=== PATIENT | male | born 1950 | race Caucasian/White ===

== ENCOUNTER 2017-02-23 09:44 | Emergency (ER) | payer BC ==
[~2017-02-23] VITALS: Ht 180.3 cm; Wt 120.5 kg
[~2017-02-23 09:44] MED LIST: GOOD SENSE OMEP20 MG PO; LIPITOR20 MG PO; NASONEX0.05 MG/AC NS; RESTORIL15 MG PO; SYMBICORT1 AE2 IH; WARFARIN SOD5 MG PO
[2017-02-23 09:48] VITALS: TEMP 97.6
[2017-02-23 10:25] LABS: BASO % 0.5 % (0.0-2.0); EOS # 0.7 (0.0-0.7); EOS % 8.4 % (0-4.0); GRAN # 5.2 (1.4-6.5); GRAN % 62.7 % (42.2-75.2); HEMATOCRIT 41.6 % (42.0-52.0); HEMOGLOBIN 13.3 g/dl (13.5-18.0); LYMPH # 1.6 (1.2-3.4); MEAN CELL VOLUME 76 fl (80.0-100.0); MEAN CORPUSCULAR HEMOGLOBIN 24 pg (27.0-31.0); MEAN CORPUSCULAR HGB CONC 32 g/dl (33.0-37.0); MEAN PLATELET VOLUME 10.7 fl (7.4-10.4); MONO # 0.8 (0.1-0.6); MONO % 9.3 % (1.7-9.3); PLATELET COUNT 206 K/mm3 (130-400); RED BLOOD COUNT 5.49 M/mm3 (4.20-5.60); REDCELL DISTRIBUTION WIDTH-CV 15.3 % (11.5-14.5); WHITE BLOOD COUNT 8.3 K/mm3 (4.8-10.8)
[2017-02-23 10:34] LABS: INR 3.2 (0.8-3.0); PROTHROMBIN TIME 36.5 SECONDS (9.7-12.8)
[2017-02-23 10:35] LABS: ADJUSTED CALCIUM 9.1 mg/dL (8.4-10.2); ALBUMIN 4.4 gm/dL (3.5-5.0); BILIRUBIN,TOTAL 1.1 mg/dL (0.0-1.0); CALCIUM 9.4 mg/dL (8.4-10.2); CREATININE, serum 1.03 mg/dL (0.66-1.25); POTASSIUM 4.1 mmol/L (3.4-5.0); TOTAL PROTEIN 7.5 gm/dL (6.4-8.2)
[2017-02-23] MEDS ORDERED: TIKOSYN0.25 MG PO (10:40)
[2017-02-23] MEDS ORDERED: REVIA 50MG TABL50 MG PO (10:41)
[2017-02-23] MEDS ORDERED: GLUCOPHAGE500 MG/TAB PO (10:41)
[2017-02-23] MEDS ORDERED: REQUIP2 MG PO (10:41)
[2017-02-23] MEDS ORDERED: LIPITOR 40MG TA40 MG PO (10:42)
[2017-02-23] MEDS ORDERED: PRILOTC (10:42)
[2017-02-23] MEDS ORDERED: COREG12.5 MG PO (10:43)
[2017-02-23] MEDS ORDERED: VASOTEC 10M10 MG/TAB PO (10:43)
[2017-02-23] MEDS ORDERED: PULMICORT180 MCG/Ac IH (10:44)
[2017-02-23] MEDS ORDERED: LASIX 20MG TABL20 MG PO (10:44)
[2017-02-23] MEDS ORDERED: ZANTAC 300300 MG PO (10:44)
[2017-02-23] MEDS ORDERED: ALDACTONE 25MG25 M1 PO (10:44)
[2017-02-23] MEDS ORDERED: TRAVATAN Z 2.52.5 ML OS (10:45)
[2017-02-23] MEDS ORDERED: THE MEDICINE S200 M2 PO (10:45)
[2017-02-23] MEDS ORDERED: FISH OIL 500 M1 EAC1 PO (10:45)
[2017-02-23] MEDS ORDERED: TRULICITY1.5 MG/0.5 SQ (10:46)
[2017-02-23] MEDS ORDERED: VITAMIN D1000 IU PO (10:46)
[2017-02-23] MEDS ORDERED: COUMADIN 77.5 MG/TAB PO (11:00)
[2017-02-23 11:27] LABS: PH 5 (5-8); SQUAMOUS EPITHELIAL None Seen /hpf; URINE APPEARANCE Clear; URINE BACTERIA None Seen /hpf; URINE BILIRUBIN Negative (NEGATIVE); URINE BLOOD Negative (NEGATIVE); URINE COLOR Yellow; URINE GLUCOSE Negative (NEGATIVE); URINE KETONE Negative (NEGATIVE); URINE RBC 0-2 /hpf; URINE UROBILINOGEN Negative (NEGATIVE); URINE WBC 0-2 /hpf
[2017-02-23 13:57] VITALS: BP 152/60; PULSE 82
== END 2017-02-23 13:59 | disposition home or self-care (01) ==
LOC: COL.ER 09:44
PROVIDERS: Emergency Medicine
DX: N41.9 Inflammatory disease of prostate, unspecified (principal); E11.9 Type 2 diabetes mellitus without complications; I10 Essential (primary) hypertension; G35 Multiple sclerosis; Z95.2 Presence of prosthetic heart valve; Z79.01 Long term (current) use of anticoagulants
CPT/HCPCS: J1956; J2765; J3010; J7030; Q9967

== ENCOUNTER 2018-03-05 06:47 | Day surgery (SDC) | payer MEDICARE, OTHER ==
[~2018-03-05] VITALS: Ht 180.3 cm; Wt 116.1 kg
[~2018-03-05 06:47] MED LIST changes: +ALDACTONE 25MG25 M1 PO; +COREG12.5 MG PO; +COUMADIN 77.5 MG/TAB PO; +D-2000 90 MG-201 TAB PO; +FISH OIL 500 M1 EAC1 PO; +GLUCOPHAGE500 MG/TAB PO; +LASIX 20MG TABL20 MG PO; +LIPITOR 40MG TA40 MG PO; +PRILOTC; +PULMICORT180 MCG/Ac IH; +REQUIP2 MG PO; +REVIA 50MG TABL50 MG PO; +THE MEDICINE S200 M2 PO; +TIKOSYN0.25 MG PO; +TRAVATAN Z 2.52.5 ML OU; +TRULICITY1.5 MG/0.5 SQ; +VASOTEC 10M10 MG/TAB PO; +ZANTAC 300300 MG PO
[2018-03-05 07:00] VITALS: BP 140/81; PULSE 75; TEMP 98.5
[2018-03-05 07:43] LABS: HEMOGLOBIN 11.3 g/dl (13.5-18.0); MEAN CELL VOLUME 72 fl (80.0-100.0); MEAN CORPUSCULAR HEMOGLOBIN 23 pg (27.0-31.0); MEAN CORPUSCULAR HGB CONC 32 g/dl (33.0-37.0); MEAN PLATELET VOLUME 10.1 fl (7.4-10.4); PLATELET COUNT 225 K/mm3 (130-400); RED BLOOD COUNT 4.94 M/mm3 (4.20-5.60); REDCELL DISTRIBUTION WIDTH-CV 17.6 % (11.5-14.5)
[2018-03-05 07:48] LABS: HEMATOCRIT 35.4 % (42.0-52.0)
[2018-03-05 07:52] LABS: INR 2.5 (0.8-3.0); PROTHROMBIN TIME 28.8 SECONDS (9.7-12.8)
[2018-03-05 07:55] LABS: CALCIUM 9.3 mg/dL (8.4-10.2); CREATININE, serum 0.89 mg/dL (0.66-1.25); POTASSIUM 3.3 mmol/L (3.4-5.0)
[2018-03-05 08:00] VITALS: BP 140/81; PULSE 75; TEMP 98.5
[2018-03-05] MEDS ORDERED: COUMADIN 1010 MG/TAB PO (08:45)
[2018-03-05] MEDS ORDERED: ASPIRIN E.C. 8181 MG PO (09:34)
[2018-03-07] MEDS ORDERED: SINGULAIR 110 MG/TAB PO (08:14)
[2018-03-07] MEDS ORDERED: LAMISIL250 M1 (08:15)
[2018-03-07] MEDS ORDERED: LYRICA 100MG C100 M1 PO (08:16)
[2018-03-07] MEDS ORDERED: COZAAR 25MG25 MG/TAB PO (08:18)
[2018-03-07] MEDS ORDERED: VISION VITAMINS1 TA1 PO (08:19)
[2018-03-07] MEDS ORDERED: FEVERFEW PO (08:22)
== END 2018-03-05 15:00 | disposition home or self-care (01) ==
LOC: COL.CAR 06:47
PROVIDERS: Internal Medicine Cardiovascular Disease
DX: I48.0 Paroxysmal atrial fibrillation (principal); I35.9 Nonrheumatic aortic valve disorder, unspecified; I38 Endocarditis, valve unspecified; I42.9 Cardiomyopathy, unspecified; I42.0 Dilated cardiomyopathy; I10 Essential (primary) hypertension; E78.5 Hyperlipidemia, unspecified; G47.33 Obstructive sleep apnea (adult) (pediatric); K21.9 Gastro-esophageal reflux disease without esophagitis; G35 Multiple sclerosis; J45.909 Unspecified asthma, uncomplicated; Z88.1 Allergy status to other antibiotic agents; Z88.0 Allergy status to penicillin; Z79.01 Long term (current) use of anticoagulants; Z82.49 Family history of ischemic heart disease and other diseases of the circulatory system

== ENCOUNTER 2018-05-02 22:18 | Inpatient (IN) | payer MEDICARE, OTHER ==
[~2018-05-02 22:18] MED LIST changes: +ASPIRIN E.C. 8181 MG PO; +COUMADIN 1010 MG/TAB PO; +COZAAR 25MG25 MG/TAB PO; +FEVERFEW PO; +LAMISIL250 M1; +LYRICA 100MG C100 M1 PO; +SINGULAIR 110 MG/TAB PO; +VISION VITAMINS1 TA1 PO
[2018-05-02 22:57] VITALS: BP 130/80; PULSE 112; TEMP 100.2
[2018-05-03 00:18] LABS: HEMATOCRIT 40.6 % (42.0-52.0); HEMOGLOBIN 13.2 g/dl (13.5-18.0); MEAN CELL VOLUME 72 fl (80.0-100.0); MEAN CORPUSCULAR HEMOGLOBIN 23 pg (27.0-31.0); MEAN CORPUSCULAR HGB CONC 33 g/dl (33.0-37.0); MEAN PLATELET VOLUME 10.6 fl (7.4-10.4); PLATELET COUNT 233 K/mm3 (130-400); RED BLOOD COUNT 5.64 M/mm3 (4.20-5.60); REDCELL DISTRIBUTION WIDTH-CV 17.5 % (11.5-14.5)
[2018-05-03 00:28] LABS: BILIRUBIN,TOTAL 1.9 mg/dL (0.0-1.0); CALCIUM 8.9 mg/dL (8.4-10.2); CREATININE, serum 1.25 mg/dL (0.66-1.25); INR 2.5 (0.8-3.0); POTASSIUM 4.3 mmol/L (3.4-5.0); PROTHROMBIN TIME 28.9 SECONDS (9.7-12.8)
[2018-05-03] MEDS ORDERED: GLUCOPHAGE500 MG/TAB PO (00:32)
[2018-05-03] MEDS ORDERED: NASONEX SPRAY17 GM NS (00:34)
[2018-05-03] MEDS ORDERED: THE MEDICINE S200 M2 PO (00:37)
[2018-05-03 00:49] LABS: ERYTHROCYTE SEDIMENTATION RATE 31 mm/hr (0-30)
[2018-05-03 00:56] LABS: TSH w REFLEX 0.984 uIU/mL (0.465-4.680)
[2018-05-03 01:06] LABS: C-REACTIVE PROTEIN 29.6 mg/dL (0.0-0.9)
[2018-05-03 01:23] LABS: ANISOCYTOSIS 1+; BAND 16 % (0-10); LYMPHOCYTE 9 % (20.0-51.0); NEUTROPHILS 70 % (42.0-75.2); PLATELET ESTIMATE NORMAL (NORMAL)
[2018-05-03 01:39] LABS: COLLECTION METHOD CLEAN CATCH
[2018-05-03 01:55] LABS: MUCOUS Present /lpf; PH 5 (5-8); SQUAMOUS EPITHELIAL 0-2 /hpf; URINE APPEARANCE Cloudy; URINE BACTERIA Moderate /hpf; URINE BILIRUBIN Negative (NEGATIVE); URINE BLOOD 2+ (NEGATIVE); URINE COLOR Amber; URINE GLUCOSE 1+ (NEGATIVE); URINE KETONE Trace (NEGATIVE); URINE LEUKOCYTE ESTERASE 2+ (NEGATIVE); URINE NITRATE Positive (NEGATIVE); URINE PROTEIN(semi-quant) 2+ (NEGATIVE); URINE RBC 0-2 /hpf; URINE UROBILINOGEN Negative (NEGATIVE); URINE WBC >50 /hpf
[2018-05-03 16:41] VITALS: BP 91/60; PULSE 84; TEMP 98.7
[2018-05-03 18:58] VITALS: BP 96/53; PULSE 85; TEMP 98
[2018-05-03 19:39] VITALS: BP 143/67; PULSE 84; TEMP 97.4
[2018-05-03 23:19] VITALS: BP 107/64; PULSE 71; TEMP 98.2
[2018-05-04 04:01] VITALS: BP 118/61; PULSE 74; TEMP 97.4
[2018-05-04 07:13] LABS: CALCIUM 8.7 mg/dL (8.4-10.2); CREATININE, serum 1.39 mg/dL (0.66-1.25); POTASSIUM 3.8 mmol/L (3.4-5.0)
[2018-05-04 07:26] LABS: THYROXINE (T4)-TOTAL 8.6 ug/dL (5.5-11.0)
[2018-05-04 07:40] LABS: THYROID STIMULATING HORMONE 0.767 uIU/mL (0.465-4.680)
[2018-05-04 07:52] VITALS: BP 109/62; PULSE 78; TEMP 98.4
[2018-05-04 11:30] VITALS: BP 101/64; PULSE 75; TEMP 98.2
[2018-05-04 16:26] VITALS: BP 101/61; PULSE 81; TEMP 98.2
[2018-05-04 20:00] VITALS: BP 111/66; PULSE 84; TEMP 99.2
[2018-05-05 04:00] VITALS: BP 123/69; PULSE 78; TEMP 99.1
[2018-05-05 07:08] VITALS: BP 123/73; PULSE 78; TEMP 98.8
[2018-05-05 11:01] VITALS: BP 121/89; PULSE 77; TEMP 98.4
[2018-05-05 15:35] VITALS: BP 124/65; PULSE 74; TEMP 98.7
[2018-05-05 19:21] LABS: INR 2.8 (0.8-3.0); PROTHROMBIN TIME 31.4 SECONDS (9.7-12.8)
[2018-05-05 20:03] VITALS: BP 117/70; PULSE 78; TEMP 98.3
[2018-05-05 23:46] VITALS: BP 131/85; PULSE 76; TEMP 97.6
[2018-05-06 03:06] VITALS: BP 127/76; PULSE 81; TEMP 99
[2018-05-06] MEDS ORDERED: CIPRO 500MG TA500 MG PO (06:56)
[2018-05-06] MEDS ORDERED: COUMADIN 77.5 MG/TAB PO (06:58)
[2018-05-06] MEDS ORDERED: COUMADIN 1010 MG/TAB PO (06:59)
[2018-05-06 08:16] VITALS: BP 143/73; PULSE 86; TEMP 98.8
[2018-05-06 09:40] VITALS: BP 143/73; PULSE 86; TEMP 98.8
[2018-05-08 12:48] LABS: VITAMIN D, 1,25 DIHYDROXY 89 pg/mL (18-64)
== END 2018-05-06 11:00 | DRG 41 ==
LOC: MEDICAL 22:18
PROVIDERS: Emergency Medicine; Psychiatry & Neurology Neurology
PROC: 0JH602Z Insertion of Monitoring Device into Chest Subcutaneous Tissue and Fascia, Open Approach (ICD-10-PCS; principal; 2018-05-05)
DX: I63.9 Cerebral infarction, unspecified (principal); N39.0 Urinary tract infection, site not specified; E87.1 Hypo-osmolality and hyponatremia; I42.0 Dilated cardiomyopathy; I50.22 Chronic systolic (congestive) heart failure; G81.94 Hemiplegia, unspecified affecting left nondominant side; G35 Multiple sclerosis; I48.0 Paroxysmal atrial fibrillation; J45.909 Unspecified asthma, uncomplicated; E11.42 Type 2 diabetes mellitus with diabetic polyneuropathy; Z91.81 History of falling; Z95.2 Presence of prosthetic heart valve; E78.2 Mixed hyperlipidemia; B96.1 Klebsiella pneumoniae [K. pneumoniae] as the cause of diseases classified elsewhere
CPT/HCPCS: A9585; C1764; J0744; J1815

== ENCOUNTER 2018-05-06 11:05 | Inpatient (IN) | payer MEDICARE, OTHER ==
[~2018-05-06] VITALS: Ht 180.3 cm; Wt 114.7 kg
[~2018-05-06 11:05] MED LIST changes: +CIPRO 500MG TA500 MG PO; +NASONEX SPRAY17 GM NS
[2018-05-06 12:02] VITALS: BP 114/65; PULSE 90; TEMP 98.1
[2018-05-06 18:35] VITALS: BP 94/59; PULSE 70; TEMP 97.5
[2018-05-06 20:30] VITALS: BP 114/62; PULSE 78
[2018-05-07 05:20] VITALS: BP 111/69; PULSE 102; TEMP 98.6
[2018-05-07 05:49] VITALS: BP 99/84; PULSE 77; TEMP 97.6
[2018-05-07 09:15] VITALS: BP 110/70
[2018-05-07 13:33] LABS: INR 2.7 (0.8-3.0); PROTHROMBIN TIME 30.4 SECONDS (9.7-12.8)
[2018-05-07 18:02] VITALS: BP 100/65; PULSE 78; TEMP 96.2
[2018-05-08 04:25] VITALS: BP 132/67; PULSE 67; TEMP 98.6
[2018-05-08 15:43] VITALS: BP 100/50; PULSE 79; TEMP 96.6
[2018-05-09 05:34] VITALS: BP 101/72; PULSE 72; TEMP 97.3
[2018-05-09 07:30] VITALS: BP 114/58
[2018-05-09 15:22] VITALS: BP 95/61; PULSE 80; TEMP 97.3
[2018-05-10 04:47] VITALS: BP 106/68; PULSE 68; TEMP 97.5
[2018-05-10 07:31] LABS: CREATININE, serum 1.09 mg/dL (0.66-1.25); POTASSIUM 4.3 mmol/L (3.4-5.0)
[2018-05-10 08:25] LABS: INR 2.5 (0.8-3.0); PROTHROMBIN TIME 28.7 SECONDS (9.7-12.8)
[2018-05-10 16:21] VITALS: BP 89/57; PULSE 79; TEMP 97.6
[2018-05-11 04:38] VITALS: BP 101/63; PULSE 69; TEMP 97.8
[2018-05-11 16:50] VITALS: BP 90/58; PULSE 84; TEMP 98.6
[2018-05-12 06:01] VITALS: BP 104/65; PULSE 77; TEMP 97.5
[2018-05-12 07:00] LABS: INR 2.3 (0.8-3.0); PROTHROMBIN TIME 26.2 SECONDS (9.7-12.8)
[2018-05-12 08:08] VITALS: BP 118/70
[2018-05-12 15:22] VITALS: BP 95/64; PULSE 84; TEMP 97.4
[2018-05-13 06:22] VITALS: BP 115/65; PULSE 83; TEMP 98
[2018-05-13 16:22] VITALS: BP 105/70; PULSE 78; TEMP 97.4
[2018-05-13] MEDS ORDERED: JANUVIA 100MG100 MG PO (17:39)
[2018-05-13 21:02] LABS: COLLECTION METHOD CLEAN CATCH
[2018-05-13 21:11] LABS: MUCOUS Present /lpf; PH 5 (5-8); SQUAMOUS EPITHELIAL 0-2 /hpf; URINE APPEARANCE Clear; URINE BACTERIA None Seen /hpf; URINE BILIRUBIN Negative (NEGATIVE); URINE BLOOD Negative (NEGATIVE); URINE COLOR Yellow; URINE GLUCOSE Negative (NEGATIVE); URINE KETONE Negative (NEGATIVE); URINE LEUKOCYTE ESTERASE Negative (NEGATIVE); URINE NITRATE Negative (NEGATIVE); URINE PROTEIN(semi-quant) Negative (NEGATIVE); URINE RBC 0-2 /hpf; URINE UROBILINOGEN Negative (NEGATIVE)
[2018-05-14 05:14] VITALS: BP 126/72; PULSE 71; TEMP 97.6
[2018-05-14 06:51] LABS: PROTHROMBIN TIME 23.2 SECONDS (9.7-12.8)
== END 2018-05-14 13:30 | disposition home or self-care (01) | DRG 59 ==
PROVIDERS: Emergency Medicine; Internal Medicine
DX: G35 Multiple sclerosis (principal); I69.354 Hemiplegia and hemiparesis following cerebral infarction affecting left non-dominant side; N39.0 Urinary tract infection, site not specified; I50.22 Chronic systolic (congestive) heart failure; B96.1 Klebsiella pneumoniae [K. pneumoniae] as the cause of diseases classified elsewhere; I11.0 Hypertensive heart disease with heart failure; E11.42 Type 2 diabetes mellitus with diabetic polyneuropathy; I48.0 Paroxysmal atrial fibrillation; E11.65 Type 2 diabetes mellitus with hyperglycemia; M51.36 Other intervertebral disc degeneration, lumbar region; M21.372 Foot drop, left foot
CPT/HCPCS: 99222-AI; 99232-AI; 99239; J1815

== ENCOUNTER 2018-08-06 09:03 | Outpatient (RCR) | payer MEDICARE, OTHER ==
[~2018-08-06 09:03] MED LIST changes: +JANUVIA 100MG100 MG PO
== END 2018-11-04 | disposition home or self-care (01) ==
LOC: WSST
DX: G35 Multiple sclerosis (principal); R05 Cough
CPT/HCPCS: G8996-GN; G8997-GN

== ENCOUNTER → 2018-09-19 | Outpatient (CLI) | payer MEDICARE, OTHER | LOC: COL.RAD 08:17 | DX: I35.9 Nonrheumatic aortic valve disorder, unspecified (principal); Z95.2 Presence of prosthetic heart valve; Z90.49 Acquired absence of other specified parts of digestive tract | CPT/HCPCS: Q9967 ==

== ENCOUNTER 2019-03-04 09:33 | Day surgery (SDC) | payer MEDICARE, OTHER ==
--- NOTE | 2019-03-03 12:12 | NUR ---
LEFT MESSAGE WITH PT IN REGARDS TO PROCEDURE INSTRUCTIONS. ENCOURAGED CALL BACK TO REVIEW MEDICAL HISTORY PRIOR TO PROCEDURE TOMORROW.
[2019-03-04] VITALS (11 sets, daily range): BP systolic 120–155; BP diastolic 63–87; PULSE 73–81; TEMP 97.8–98.1
[~2019-03-04] VITALS: Ht 175.3 cm; Wt 124.1 kg
[2019-03-04 10:23] LABS: HEMOGLOBIN 10.8 g/dl (13.5-18.0); MEAN CELL VOLUME 75 fl (80.0-100.0); MEAN CORPUSCULAR HEMOGLOBIN 23 pg (27.0-31.0); MEAN CORPUSCULAR HGB CONC 31 g/dl (33.0-37.0); MEAN PLATELET VOLUME 10.3 fl (7.4-10.4); PLATELET COUNT 215 K/mm3 (130-400); RED BLOOD COUNT 4.63 M/mm3 (4.20-5.60)
[2019-03-04 10:28] LABS: HEMATOCRIT 34.7 % (42.0-52.0)
[2019-03-04 10:31] LABS: INR 1.3 (0.8-3.0); PROTHROMBIN TIME 14.7 SECONDS (9.7-12.8)
[2019-03-04 10:33] LABS: CALCIUM 9.5 mg/dL (8.4-10.2); CREATININE, serum 0.99 (0.66-1.25); POTASSIUM 3.4 mmol/L (3.4-5.0)
[2019-03-04] MEDS ORDERED: NORVASC 5MG5 MG/TAB PO (10:49)
[2019-03-04] MEDS ORDERED: VITAMIN D 1001000 IU (10:49)
[2019-03-04] MEDS ORDERED: ZANTAC 300300 MG PO (10:52)
[2019-03-04] MEDS ORDERED: TIKOSYN0.125 MG PO (10:53)
[2019-03-04] MEDS ORDERED: LOVENOX 100100 MG/ML SQ (10:55)
--- NOTE | 2019-03-04 11:56 | NUR ---
SEE MERGE DOCUMENTATION FOR MEDICATION ADMINISTRATION TIMES AND INTRA/POST PROCEDURE SEDATION ASSESSMENTS.
--- NOTE | 2019-03-04 14:00 | NUR ---
PT ADMITTED TO FLOOR. NO C/O PAIN AT THIS TIME. POST OP VITALS BEING OBTAINED. NO ISSUES OR CONSERNS VOICED. PT ORDERING LUNCH. DRESSING SITES TO LT CHEST CLEAN DRY INTACT, SLING IN PLACE. OFFERED PT ICE PACK, DENIED NEED. ORDERS FOR IRON STUDIES AND HEMOCULT IN LAB ORDERS, PT UNKNOWING ABOUT THIS WHEN ASKED, WILL ATTEMPT TO SEE [facility] FOR TESTING.
[2019-03-04 18:33] LABS: IRON,SERUM 73 ug/dL (35-150)
[2019-03-04 18:44] LABS: TOTAL IRON BINDING CAPACITY 298 ug/dL (261-462)
[2019-03-04 19:08] LABS: FERRITIN 48 ng/mL (18-464)
--- NOTE | 2019-03-04 20:21 | NUR ---
Sitting at bedside. Assessment complete. Lungs clear. Heart sounds normal. Bowels active x4. ABD rounded and firm. Pulses strong throughout. No edema noted. Left chest incision dressing CDI. Midchest incision dressing CDI. Denies pain at this time. Left hand INT flushed without complication. Denies needs. Call light in reach. Left arm sling in place.
--- NOTE | 2019-03-04 23:39 | NUR ---
Resting in bed. Dressings CDI. Denies needs. Denies pain. Call light in reach.
[2019-03-05 04:07] VITALS: BP 143/81; PULSE 77; TEMP 98.5
--- NOTE | 2019-03-05 04:30 | NUR ---
Resting in bed. Call light in reach.
[2019-03-05 06:31] LABS: BASO % 0.4 % (0.0-2.0); EOS # 0.3 (0.0-0.7); EOS % 3.3 % (0-4.0); GRAN # 6.3 (1.4-6.5); GRAN % 74.7 % (42.2-75.2); HEMOGLOBIN 10.4 g/dl (13.5-18.0); LYMPH # 1.1 (1.2-3.4); LYMPH % 12.8 % (20.0-51.0); MEAN CELL VOLUME 75 fl (80.0-100.0); MEAN CORPUSCULAR HEMOGLOBIN 23 pg (27.0-31.0); MEAN CORPUSCULAR HGB CONC 31 g/dl (33.0-37.0); MEAN PLATELET VOLUME 10.9 fl (7.4-10.4); MONO # 0.7 (0.1-0.6); MONO % 7.7 % (1.7-9.3); PLATELET COUNT 212 K/mm3 (130-400); REDCELL DISTRIBUTION WIDTH-CV 16.1 % (11.5-14.5)
[2019-03-05 06:36] LABS: CALCIUM 9.2 mg/dL (8.4-10.2); CREATININE, serum 0.88 (0.66-1.25); MAGNESIUM 1.5 mg/dL (1.6-2.3); POTASSIUM 3.2 mmol/L (3.4-5.0)
--- NOTE | 2019-03-05 06:44 | NUR ---
Patient had uneventful night. Dressings remain CDI. Report given to ERNST Pineda
[2019-03-05 06:51] LABS: INR 1.2 (0.8-3.0); PROTHROMBIN TIME 14.6 SECONDS (9.7-12.8)
[2019-03-05 06:57] LABS: HEMATOCRIT 33.9 % (42.0-52.0)
[2019-03-05 08:47] VITALS: BP 157/78; PULSE 86; TEMP 98.2
--- NOTE | 2019-03-05 09:21 | NUR ---
MARTÍN met with the patient to discuss discharge plan. The patient lives alone in [place]. He has a international student advisor that lives in his basement, who plans to come pick him up upon discharge. He reports independence with ADLs and has a walker. The patient's PCP is Dr. Tone Marques and he receives his medications at the [facility]. He reports no difficulties obtaining his meds. The patient does not have advanced directives in EMR, but he states that he does have them completed. The patient plans to return home upon discharge. No additional needs at this time.
[2019-03-05] MEDS ORDERED: CLEOCIN HCL300 MG PO (10:39)
[2019-03-05] MEDS ORDERED: LOVENOX120 MG/0.8 SQ (10:39)
--- NOTE | 2019-03-05 10:47 | NUR ---
Initial visit; Patient thanked Helpdesk Analyst for looking in on him and offering God's blessings.
--- NOTE | 2019-03-05 12:00 | NUR ---
PT INFORMED THIS NURSE HE TALKED WITH THE PACE MAKER PEOPLE WHO PAIR THE PACER WITH A MOBILE DEVICE THAT THEY ARE GOING TO PAIR IT WITH HIS MOBILE DEVICE AT HOME. PT VOICED NO QUESTIONS OR CONSERNS AT THIS TIME. PT WAS INFORMED OF DISCARGE AND STATED HE WAS GOING TO GET DRESSED AND CALL HIS RIDE. THIS NURSE TOOK OUT IV AND INFOMRED PT THAT I WOULD GATHER HIS PAPERWORK.
--- NOTE | 2019-03-05 13:30 | NUR ---
PT EDUCATION WAS PROVIDED AND PAPER WORK SIGNED AT THIS TIME. PT ESCORTED BY STAFF OUT OF FACILITY
== END 2019-03-05 15:32 | disposition home or self-care (01) ==
LOC: COL.CAR 09:33 → MEDICAL 14:03 → COL.CAR 03-05 15:32
PROVIDERS: Internal Medicine Cardiovascular Disease; Nurse Practitioner
DX: I42.0 Dilated cardiomyopathy (principal); I48.0 Paroxysmal atrial fibrillation; I69.354 Hemiplegia and hemiparesis following cerebral infarction affecting left non-dominant side; I11.9 Hypertensive heart disease without heart failure; Z79.01 Long term (current) use of anticoagulants; Z95.2 Presence of prosthetic heart valve; E78.5 Hyperlipidemia, unspecified; G35 Multiple sclerosis; G47.33 Obstructive sleep apnea (adult) (pediatric); I87.8 Other specified disorders of veins; E13.39 Other specified diabetes mellitus with other diabetic ophthalmic complication; H42 Glaucoma in diseases classified elsewhere; K21.9 Gastro-esophageal reflux disease without esophagitis; J45.909 Unspecified asthma, uncomplicated; I08.3 Combined rheumatic disorders of mitral, aortic and tricuspid valves; I27.20 Pulmonary hypertension, unspecified; Z88.0 Allergy status to penicillin; Z79.899 Other long term (current) drug therapy; Z79.84 Long term (current) use of oral hypoglycemic drugs
CPT/HCPCS: OP; C1721; C1777; C1894; J2250; J3010; J3370; J3475; J7050; Q9967

== ENCOUNTER 2019-06-01 07:50 | Inpatient (IN) | payer MEDICARE, OTHER ==
[~2019-06-01] VITALS: Ht 177.8 cm; Wt 122.4 kg
[~2019-06-01 07:50] MED LIST changes: +CLEOCIN HCL300 MG PO; +LOVENOX 100100 MG/ML SQ; +LOVENOX120 MG/0.8 SQ; +NORVASC 5MG5 MG/TAB PO; +TIKOSYN0.125 MG PO; +VITAMIN D 1001000 IU
[2019-06-01 08:16] LABS: MEAN CELL VOLUME 72 fl (80.0-100.0); MEAN CORPUSCULAR HEMOGLOBIN 22 pg (27.0-31.0); MEAN CORPUSCULAR HGB CONC 31 g/dl (33.0-37.0); MEAN PLATELET VOLUME 11.4 fl (7.4-10.4); PLATELET COUNT 190 K/mm3 (130-400); RED BLOOD COUNT 4.93 M/mm3 (4.20-5.60); REDCELL DISTRIBUTION WIDTH-CV 17.2 % (11.5-14.5)
[2019-06-01 08:18] LABS: INR 2.8 (0.8-3.0); PROTHROMBIN TIME 33.8 SECONDS (9.7-12.8)
[2019-06-01 08:23] LABS: HEMATOCRIT 35.4 % (42.0-52.0)
[2019-06-01 08:26] LABS: BILIRUBIN,TOTAL 1.7 mg/dL (0.0-1.0); C-REACTIVE PROTEIN 6.7 mg/dL (0.0-0.9); CALCIUM 8.8 mg/dL (8.4-10.2); CREATININE, serum 1.04 (0.66-1.25); POTASSIUM 3.5 mmol/L (3.4-5.0); TOTAL PROTEIN 7.5 gm/dL (6.4-8.2)
[2019-06-01 08:38] LABS: BAND 2 % (0-10); LYMPHOCYTE 12 % (20.0-51.0); NEUTROPHILS 82 % (42.0-75.2); PLATELET ESTIMATE NORMAL (NORMAL)
[2019-06-01 08:43] LABS: TROPONIN-I 0.047 ng/mL (0.000-0.035)
[2019-06-01 08:51] LABS: COLLECTION METHOD CLEAN CATCH
[2019-06-01 09:05] LABS: MUCOUS Present /lpf; PH 6 (5-8); SQUAMOUS EPITHELIAL 0-2 /hpf; URINE APPEARANCE Cloudy; URINE BACTERIA Rare /hpf; URINE BILIRUBIN Negative (NEGATIVE); URINE BLOOD Negative (NEGATIVE); URINE COLOR Amber; URINE GLUCOSE Negative (NEGATIVE); URINE KETONE Trace (NEGATIVE); URINE LEUKOCYTE ESTERASE 1+ (NEGATIVE); URINE NITRATE Positive (NEGATIVE); URINE PROTEIN(semi-quant) 2+ (NEGATIVE); URINE UROBILINOGEN Negative (NEGATIVE)
--- NOTE | 2019-06-01 10:30 | NUR ---
PATIENT ARRIVED TO ROOM 319 VIA CART FROM ED.
--- NOTE | 2019-06-01 11:32 | NUR ---
SEE ASSESSMENT B FOR SHIFT AND ADMISSION ASSESSMENT.
--- NOTE | 2019-06-01 11:49 | NUR ---
ABBI HERNANDEZ NOTIFIED OF CRITICAL TROPONIN RESULT OF 0.042. NO ORDERS GIVEN AT THIS TIME.
--- NOTE | 2019-06-01 12:19 | NUR ---
DR. BARAJAS CALLED AND NOTIFIED OF CARDIOLOGY CONSULT FOR ELEVATED TROPONINS. NO ORDERS GIVEN AT THIS TIME.
[2019-06-01 12:40] VITALS: BP 112/69; PULSE 82; TEMP 98.8
[2019-06-01 13:08] LABS: TOTAL IRON BINDING CAPACITY 378 ug/dL (261-462)
--- NOTE | 2019-06-01 13:26 | NUR ---
Warfarin Initial Dosing Pharmacy Note Ordering Provider: Ganesh Mak MD Indication: Atrial fibrillation, hx of mechanical aortic valve replacement LABS: 2.8 Recommendation: Continue home dose of Warfarin 7.5 mg po q48h, alternating with Warfarin 10 mg po q48h. Pharmacy will continue monitoring daily INR levels. Home Regimen: Warfarin 7.5 mg po q48h alternating with 10 mg po q48h
[2019-06-01 13:33] LABS: IRON,SERUM 26 ug/dL (35-150)
[2019-06-01 14:00] LABS: FERRITIN 27 ng/mL (18-464)
[2019-06-01 16:03] VITALS: BP 121/68; PULSE 82; TEMP 98.6
--- NOTE | 2019-06-01 19:00 | NUR ---
REPORT GIVEN TO ERNST DEL RIO.
[2019-06-01 19:14] VITALS: BP 156/73; PULSE 94; TEMP 99
--- NOTE | 2019-06-01 21:49 | NUR ---
HS MEDICATIONS WITH NOVOLG ADMINISTERED ACCORDING TO ORDER. PATIENT LAYING IN BED WATCHING TV. A/O X 4. DENIES C/O PAIN. CHART REVIEWED INR 2.8 06/01/19 COUMADIN 7.5MG PO GIVEN. [id number] WNL. AT EMND OF VISIT PATIENT DENIES QUESTIONS OR CONCERNS. CPAP IN PLACE LIGHTS AND TV SHUT OFF. PATIENT READY FOR BED. PRIMARY NURSE QUANG DUKES GIVEN UPDATE ON ABOVE DOCUMENTATION.
[2019-06-01 23:48] VITALS: BP 146/75; PULSE 85; TEMP 98.8
[2019-06-02] VITALS (10 sets, daily range): BP systolic 133–147; BP diastolic 68–87; PULSE 81–101; TEMP 98.3–99.6
--- NOTE | 2019-06-02 02:10 | NUR ---
Report received from ERNST Joshi. Patient resting in bed. Assessment complete. Denies pain. Pulses strong. Lungs CTA. NPO at 0000. Alert and oriented. Denies any further needs at this time. Call light within reach.
--- NOTE | 2019-06-02 05:45 | NUR ---
Patient had uneventful night. Resting in bed. Has expressed no pain or needs at this time. Call light within reach.
--- NOTE | 2019-06-02 06:59 | NUR ---
Report given to ERNST Jorge
[2019-06-02 07:08] LABS: BASO % 0.2 % (0.0-2.0); EOS # 0.1 (0.0-0.7); EOS % 0.9 % (0-4.0); GRAN # 10.5 (1.4-6.5); GRAN % 82.4 % (42.2-75.2); HEMOGLOBIN 10.2 g/dl (13.5-18.0); LYMPH # 0.9 (1.2-3.4); MEAN CELL VOLUME 72 fl (80.0-100.0); MEAN CORPUSCULAR HEMOGLOBIN 22 pg (27.0-31.0); MEAN CORPUSCULAR HGB CONC 31 g/dl (33.0-37.0); MEAN PLATELET VOLUME 12.1 fl (7.4-10.4); MONO # 1.1 (0.1-0.6); MONO % 8.8 % (1.7-9.3); PLATELET COUNT 164 K/mm3 (130-400); REDCELL DISTRIBUTION WIDTH-CV 17.1 % (11.5-14.5)
[2019-06-02 07:19] LABS: ALBUMIN 3.5 gm/dL (3.5-5.0); BILIRUBIN,TOTAL 1.3 mg/dL (0.0-1.0); CALCIUM 8.8 mg/dL (8.4-10.2); CREATININE, serum 0.95 (0.66-1.25); POTASSIUM 3.2 mmol/L (3.4-5.0)
[2019-06-02 07:21] LABS: INR 2.7 (0.8-3.0); PROTHROMBIN TIME 32.4 SECONDS (9.7-12.8)
--- NOTE | 2019-06-02 09:11 | NUR ---
Assessment completed, alert/oriented, vital signs stable, denies pain, reports that he feels stronger today and that he is doing much better than when he came in, he is able to stand with moderate assistance and then with stand by assist was able to ambulate into the bathroom and back to the recliner with a walker, heart RRR/ distal pulses are palpable, lungs CTA/ no resp.difficulty, he will have a stress test done this morning as his Troponin was elevated on admission, TYPIST and myself assisted him with morning care/hygiene , he is now in the chair and denies other needs or concerns for now
--- NOTE | 2019-06-02 14:09 | NUR ---
MARTÍN met with the patient and the patient's friend/roommate, Homero Velasco, to discuss discharge plan. The patient lives in [place] with two roommates: Homero Velasco and Marvel oHpe. He reports independence with ADLs and has a walker, walk-in shower, and raised toliet. The patient's PCP is Dr. Tone Marques and he receives his medications at the [facility]. He reports no difficulties obtaining his meds. The patient does not have advanced directives in EMR, but he states that he does have them completed and at home. He states that his DPOA-HC is his sister, Trish Sales (ph#[phone]). The patient plans to return back home upon discharge. He states that he may be interested in getting set up with outpatient therapy upon discharge, depending on how he does with PT. SW to follow up with the patient tomorrow, 06/03, and will continue to follow.
--- NOTE | 2019-06-02 21:38 | NUR ---
Report recevied from ERNST Jorge. Patient resting in bed. Assessment complete. Pulses strong. Lungs CTA. HR tachy. Denies pain. IV patent, flushed. Instructed patient to notify this nurse if he felt anything different, due to having runs of v-tach. Patient stated understanding. Denies any further needs at this time. Call light within reach.
[2019-06-03 03:18] VITALS: BP 132/80; PULSE 75
--- NOTE | 2019-06-03 05:42 | NUR ---
Patient had uneventful night. One episode of v-tach, but resolved on its own. Patient denied having any pain. Resting in bed. Call light within reach.
--- NOTE | 2019-06-03 07:00 | NUR ---
Report received from ERNST Chowdhury. PT in bed resting with CPAP in place, denies needs, will continue to monitor.
--- NOTE | 2019-06-03 07:01 | NUR ---
Report given to ERNST Martinez
[2019-06-03 07:08] LABS: CREATININE, serum 1.14 (0.66-1.25); MAGNESIUM 2.2 mg/dL (1.6-2.3); POTASSIUM 3.8 mmol/L (3.4-5.0)
[2019-06-03 07:19] LABS: INR 2.5 (0.8-3.0); PROTHROMBIN TIME 29.7 SECONDS (9.7-12.8)
[2019-06-03 07:25] VITALS: BP 149/75; PULSE 80; TEMP 98.7
--- NOTE | 2019-06-03 08:06 | NUR ---
Warfarin Follow-up Pharmacy Note Current regimen: WARFARIN 10 MG Q48H, ALTERNATING WITH 7.5 MG Q48H LABS: INR 2.5 Changes in therapy: PT WITH MECHANICAL MITRAL VALVE. INR DECREASED FROM 2.7 TO 2.5. CONTINUE WARFARIN 10 MG DAILY UNTIL STABLE INR. GOAL 2.5-3.5.
--- NOTE | 2019-06-03 08:15 | NUR ---
Assessment charted. Pt feeling well, has running nose and mild cough per pt not sure if it is cold or allergies. Otherwise pt states he is feeling much improved since admission. Dneies pain. INT to LA/C. Resting in chair at side of bed with alarm on. Will contineu to monitor.
[2019-06-03 09:05] LABS: ANISOCYTOSIS 1+; HEMATOCRIT 34.8 % (42.0-52.0); HEMOGLOBIN 10.8 g/dl (13.5-18.0); LYMPHOCYTE 6 % (20.0-51.0); MEAN CELL VOLUME 72 fl (80.0-100.0); MEAN CORPUSCULAR HEMOGLOBIN 22 pg (27.0-31.0); MEAN CORPUSCULAR HGB CONC 31 g/dl (33.0-37.0); MEAN PLATELET VOLUME 11.5 fl (7.4-10.4); NEUTROPHILS 85 % (42.0-75.2); PLATELET COUNT 166 K/mm3 (130-400); PLATELET ESTIMATE NORMAL (NORMAL); RED BLOOD COUNT 4.83 M/mm3 (4.20-5.60); REDCELL DISTRIBUTION WIDTH-CV 17.8 % (11.5-14.5)
--- NOTE | 2019-06-03 09:42 | NUR ---
Initial visit; Patient thanked Customer Facilities Supervisor for looking in on him and offering God's blessings.
[2019-06-03] MEDS ORDERED: FERROUS SU325 MG/TAB PO (09:43)
[2019-06-03] MEDS ORDERED: TOPROL XL 50MG50 MG PO (09:45)
[2019-06-03] MEDS ORDERED: VITAMIN C500 MG PO (09:45)
[2019-06-03] MEDS ORDERED: OMNICEF 300MG300 MG PO (09:50)
--- NOTE | 2019-06-03 11:06 | NUR ---
MARTÍN met with the patient to review discharge plan. The patient reports that he is interested in starting outpatient PT again. He states that he received it at [facility] in the past and that he would like to go through them again. MARTÍN contacted [facility] and secured the patient an outpatient PT appointment for Saturday, 06/09, at 0930. MARTÍN informed the patient and the director of community life of appointment. MARTÍN to inform the patient's PA. MARTÍN will need fax the patient's orders to [facility] at [phone]. MARTÍN to continue to follow.
[2019-06-03 11:27] VITALS: BP 127/70; PULSE 72; TEMP 99.1
--- NOTE | 2019-06-03 17:15 | NUR ---
Discharge teaching completed at this time. Pt received discharge packet with f/u appointments, medication changes, answered all questions. INT dc'd, tip intact. Pt left with all belongings, escorted out by myself via w/c. Friend to drive home, criteria met.
--- NOTE | 2019-06-04 09:28 | NUR ---
The patient did discharge back home yesterday, 06/03, with outpatient PT through [facility]. SW faxed the patient's orders to [facility]. No additional needs at this time.
== END 2019-06-03 17:15 | disposition home or self-care (01) | DRG 689 ==
LOC: COL.ER 07:50 → MEDICAL 09:39
PROVIDERS: Emergency Medicine; Nurse Practitioner Family; Physician Assistant; ADMIT Hospitalist
DX: N39.0 Urinary tract infection, site not specified (principal); G93.41 Metabolic encephalopathy; I42.9 Cardiomyopathy, unspecified; I50.22 Chronic systolic (congestive) heart failure; E87.2 Acidosis; I47.1 Supraventricular tachycardia; G35 Multiple sclerosis; I48.0 Paroxysmal atrial fibrillation; E11.42 Type 2 diabetes mellitus with diabetic polyneuropathy; I11.0 Hypertensive heart disease with heart failure; J45.909 Unspecified asthma, uncomplicated; E78.5 Hyperlipidemia, unspecified; E83.42 Hypomagnesemia; E87.6 Hypokalemia; D50.9 Iron deficiency anemia, unspecified; I44.0 Atrioventricular block, first degree; K21.9 Gastro-esophageal reflux disease without esophagitis; G25.81 Restless legs syndrome; H26.9 Unspecified cataract; G47.33 Obstructive sleep apnea (adult) (pediatric); B96.20 Unspecified Escherichia coli [E. coli] as the cause of diseases classified elsewhere; Z79.01 Long term (current) use of anticoagulants; Z99.81 Dependence on supplemental oxygen; Z95.810 Presence of automatic (implantable) cardiac defibrillator; Z95.2 Presence of prosthetic heart valve; Z86.73 Personal history of transient ischemic attack (TIA), and cerebral infarction without residual deficits; Z88.0 Allergy status to penicillin
CPT/HCPCS: 99222-AI; 99232-AI; 99239; A4216; A9500; A9585; J0696; J1815; J1956; J2785; J3475; J7030; Q9967

== ENCOUNTER 2020-09-24 13:28 | Emergency (ER) | payer MEDICARE, OTHER ==
[~2020-09-24] VITALS: Ht 180.3 cm; Wt 118.2 kg
[~2020-09-24 13:28] MED LIST changes: +FERROUS SU325 MG/TAB PO; +OMNICEF 300MG300 MG PO; +TOPROL XL 50MG50 MG PO; +VITAMIN C500 MG PO
[2020-09-24 13:38] VITALS: BP 143/79; TEMP 97.5
[2020-09-24] MEDS ORDERED: BACTRIM DS 8001 TAB PO (14:55)
[2020-09-24 15:05] VITALS: PULSE 74
== END 2020-09-24 15:06 | disposition home or self-care (01) ==
LOC: COL.ER 13:28
DX: M70.22 Olecranon bursitis, left elbow (principal); I10 Essential (primary) hypertension; E11.9 Type 2 diabetes mellitus without complications; Z95.0 Presence of cardiac pacemaker; Z95.4 Presence of other heart-valve replacement; Z90.49 Acquired absence of other specified parts of digestive tract; Z88.0 Allergy status to penicillin; Z88.1 Allergy status to other antibiotic agents; Z79.84 Long term (current) use of oral hypoglycemic drugs; Z79.01 Long term (current) use of anticoagulants

== ENCOUNTER 2021-04-04 12:09 | Inpatient (IN) | payer MEDICARE, OTHER ==
[~2021-04-04] VITALS: Ht 180.3 cm; Wt 109.1 kg
[~2021-04-04 12:09] MED LIST changes: +BACTRIM DS 8001 TAB PO
[2021-04-04 12:41] LABS: BASO # 0.1 (0.0-0.2); BASO % 0.3 % (0.0-2.0); EOS # 0.1 (0.0-0.7); EOS % 0.4 % (0-4.0); GRAN # 16.4 (1.4-6.5); GRAN % 86.3 % (42.2-75.2); HEMATOCRIT 45.2 % (42.0-52.0); HEMOGLOBIN 14.5 g/dl (13.5-18.0); LYMPH # 0.9 (1.2-3.4); LYMPH % 4.8 % (20.0-51.0); MEAN CELL VOLUME 80 fl (80.0-100.0); MEAN CORPUSCULAR HEMOGLOBIN 26 pg (27.0-31.0); MEAN CORPUSCULAR HGB CONC 32 g/dl (33.0-37.0); MEAN PLATELET VOLUME 11.3 fl (7.4-10.4); MONO # 1.4 (0.1-0.6); MONO % 7.5 % (1.7-9.3); PLATELET COUNT 199 K/mm3 (130-400); RED BLOOD COUNT 5.68 M/mm3 (4.20-5.60); REDCELL DISTRIBUTION WIDTH-CV 14.5 % (11.5-14.5)
[2021-04-04 12:51] LABS: ALBUMIN 4.2 gm/dL (3.5-5.0); CALCIUM 9.2 mg/dL (8.4-10.2); CREATININE, serum 1.09 (0.66-1.25); POTASSIUM 3.5 mmol/L (3.4-5.0); TOTAL PROTEIN 8.3 gm/dL (6.4-8.2)
[2021-04-04 13:02] LABS: TROPONIN-I 0.019 ng/mL (0.000-0.035)
[2021-04-04 13:16] LABS: COLLECTION METHOD CLEAN CATCH
[2021-04-04 13:32] LABS: MUCOUS Present /lpf; PH 5 (5-8); SQUAMOUS EPITHELIAL 0-2 /hpf; URINE APPEARANCE Hazy; URINE BACTERIA Rare /hpf; URINE BILIRUBIN Negative (NEGATIVE); URINE BLOOD Negative (NEGATIVE); URINE COLOR Yellow; URINE GLUCOSE 3+ (NEGATIVE); URINE KETONE Negative (NEGATIVE); URINE LEUKOCYTE ESTERASE 1+ (NEGATIVE); URINE NITRATE Positive (NEGATIVE); URINE PROTEIN(semi-quant) Negative (NEGATIVE); URINE RBC 0-2 /hpf; URINE UROBILINOGEN Negative (NEGATIVE)
[2021-04-04] MEDS ORDERED: FARXIGA5 PO (15:30)
[2021-04-04] MEDS ORDERED: OZEMPIC1 MG/0.75 SQ (16:38)
[2021-04-04] MEDS ORDERED: ZEBETA10 MG PO (16:38)
[2021-04-04] MEDS ORDERED: TRULICITY1.5 MG/0.5 SQ (18:03)
--- NOTE | 2021-04-04 20:01 | NUR ---
PATIENT ARRIVED TO UNITS VIA STHREGHTER ACCOMPANY BY RN AND FAMILY MEMBER. PATIENT ALERT AND ORIENTED X4. VSS, DENIES PAIN AT THIS. INCONTINENT OF URINE. RON CARE PROVIDE. ORIENTED TO ROOM. CALL LIGHT IN REACH, BED LOCKED IN LOW POSITIONS. WILL CONTINUE TO MONITOR.
[2021-04-04 20:10] VITALS: BP 119/87; PULSE 110; TEMP 97.8
--- NOTE | 2021-04-04 21:06 | NUR ---
PATIENT IN AFLUTTER WITH HR IN THE 150'S. HOSPITOLIST LOYDA GIBBS IN TO SEE PATIENT. EKD DONE, VSS. PATIENT DENIES ANY CHEST PAIN OR SOB. MANUFACTURING INSPECTOR CONSULTED. WILL CONTINUE TO MONITOR.
--- NOTE | 2021-04-04 22:17 | NUR ---
PATIENT BACK INTO AFLUTTER, HR IN THE 140'S. DIGOXIN O.25MG IV GIVEN ORDERED. HR NOW 96. WILL CONTINUE TO MONITOR.
[2021-04-05] VITALS (7 sets, daily range): BP systolic 104–156; BP diastolic 61–86; PULSE 87–100; TEMP 97.8–99
--- NOTE | 2021-04-05 04:51 | NUR ---
PATIENT RESTING IN BED, NO EVENT AT THIS TIME. VSS. DENIES CHEST OR PALPITATION. WILL CONTINUE TO MONITOR.
[2021-04-05 06:50] LABS: HEMATOCRIT 44.9 % (42.0-52.0); HEMOGLOBIN 14.6 g/dl (13.5-18.0); MEAN CELL VOLUME 79 fl (80.0-100.0); MEAN CORPUSCULAR HEMOGLOBIN 26 pg (27.0-31.0); MEAN CORPUSCULAR HGB CONC 33 g/dl (33.0-37.0); MEAN PLATELET VOLUME 11.6 fl (7.4-10.4); PLATELET COUNT 203 K/mm3 (130-400); RED BLOOD COUNT 5.69 M/mm3 (4.20-5.60); REDCELL DISTRIBUTION WIDTH-CV 14.6 % (11.5-14.5)
[2021-04-05 06:58] LABS: INR 3.5 (0.8-3.0); PROTHROMBIN TIME 38.9 SECONDS (9.7-12.8)
[2021-04-05 07:11] LABS: CALCIUM 9.2 mg/dL (8.4-10.2); CREATININE, serum 1.09 (0.66-1.25); POTASSIUM 3.5 mmol/L (3.4-5.0)
--- NOTE | 2021-04-05 11:24 | NUR ---
First visit from the brush polisher. No needs right now.
--- NOTE | 2021-04-05 16:31 | NUR ---
Solar Energy Systems Engineer met with the patient to complete intake. The patient lives in [place] with two roommates (they rent rooms from the patient). The patient has a walker he uses all the time and a CPAP. The patient's PCP is Dr. Marques and patient receives medications from [facility] pharmacy. The patient does not have advanced directives but was interested in DPOA-HC form. Form provided. The patient is not and has no children. The patient has two siblings, Trish Sales who lives in [place], [place] #[phone] and Herbert Sales who lives in [place]. PT is recommending post acute rehab. SW discussed Medicare.gov's list of post acute rehabs. The first choice is [facility] and second choice is [facility]. Referrals sent. Awaiting screens. *Discharge disposition at this time: Referrals sent to [facility] and [facility]. Awaiting screens*
--- NOTE | 2021-04-05 18:00 | NUR ---
Patient is doing well today. He has been up several times and is moving better this afternoon than this morning. Denies pain and nausea. He sat up in the recliner most the morning. He had a new IV site placed this morning to the left forearm because the old site started leaking. His WBG's have been high. He stated at home they are not usually this high. He has not taken his weekly injection for diabetes this week. No changes to his heart rate today, it has been steady around the 80-90s, it has been irregular but no atrial flutter. No complaints of pain today. Denies nausea. No other changes at this time. Call light within reach.
--- NOTE | 2021-04-05 19:47 | NUR ---
REPORT RECEICED FROM NURSE NATHAN. PATIENT RESTING IN BED, STARTED ON NEW TUBE FEED. HOB ELEVATED. PATIENT APPEARED COMFORTABLE ON NO APPARENT DISTRESS. BED ALARM ON. WILL CONTINUE TO MONITOR.
[2021-04-06 00:03] VITALS: BP 131/61; PULSE 85; TEMP 97.9
[2021-04-06 04:00] VITALS: BP 130/63; PULSE 89; TEMP 98
--- NOTE | 2021-04-06 06:23 | NUR ---
PATIENT ALERT AND ORIENTEDX4. VSS. DENIES PAIN. HAD A FEW SECONDS OF AFLUTTER WITH HR 140'S 150'S HOSPITOLIST KD MADE AWARE. LOPRESSOR 25 MG PO GIVEN ORDERED. USES C-PAP OVERNIGHT, VOID IN THE URINAL. CONTINUE ON IVF AND IV ABX. CALL LIGHT WITHIN REACH. WILL CONTINUE TO MONITOR.
[2021-04-06 06:45] LABS: BASO % 0.3 % (0.0-2.0); EOS # 0.1 (0.0-0.7); EOS % 1.1 % (0-4.0); GRAN % 80.3 % (42.2-75.2); HEMATOCRIT 42.1 % (42.0-52.0); HEMOGLOBIN 13.9 g/dl (13.5-18.0); LYMPH # 0.7 (1.2-3.4); LYMPH % 6.9 % (20.0-51.0); MEAN CELL VOLUME 80 fl (80.0-100.0); MEAN CORPUSCULAR HEMOGLOBIN 26 pg (27.0-31.0); MEAN CORPUSCULAR HGB CONC 33 g/dl (33.0-37.0); MEAN PLATELET VOLUME 11.5 fl (7.4-10.4); MONO # 1.1 (0.1-0.6); MONO % 10.7 % (1.7-9.3); PLATELET COUNT 174 K/mm3 (130-400); RED BLOOD COUNT 5.26 M/mm3 (4.20-5.60); REDCELL DISTRIBUTION WIDTH-CV 14.6 % (11.5-14.5)
[2021-04-06 06:47] LABS: INR 3.3 (0.8-3.0); PROTHROMBIN TIME 37.4 SECONDS (9.7-12.8)
[2021-04-06 06:59] LABS: ALBUMIN 3.5 gm/dL (3.5-5.0); CALCIUM 9.4 mg/dL (8.4-10.2); CREATININE, serum 0.97 (0.66-1.25); POTASSIUM 3.8 mmol/L (3.4-5.0); TOTAL PROTEIN 7.2 gm/dL (6.4-8.2)
[2021-04-06 07:21] VITALS: BP 129/72; PULSE 86; TEMP 97.9
[2021-04-06 08:04] VITALS: BP 120/65; BP 127/74; BP 132/75; PULSE 87; PULSE 88
--- NOTE | 2021-04-06 08:26 | NUR ---
Assessment completed, alert/oriented, vital signs stable, denies pain, stated he still feels very weak, heart irregular/paced, cardiology consulted as patient has been having short runs of A.fib/RVR the last 2 nights, lungs CTA /no resp.difficulty, WBC has normalized/ afebrile, a.m meds given, patient eating breakfast, denies other needs at this time
--- NOTE | 2021-04-06 08:40 | NUR ---
Annie with [facility] contacted this Radar Technician regarding patient discharge. They can accept the patient pending room availability once the patient is ready for discharge.
--- NOTE | 2021-04-06 10:12 | NUR ---
Client Strategist attended clinical rounds with the team. Rosalee, GALILEA Director staffed with this SW and reports they can accept the patient of post acute rehab.
[2021-04-06 11:15] VITALS: BP 120/69; PULSE 74; TEMP 98.2
[2021-04-06] MEDS ORDERED: IPRATROPIUM BROM3 M1 IH (11:54)
[2021-04-06] MEDS ORDERED: TYLENOL 325MG325 MG PO (11:55)
[2021-04-06] MEDS ORDERED: OMNICEF 300MG300 MG PO (11:59)
--- NOTE | 2021-04-06 14:11 | NUR ---
The patient to tentatively discharge today, 04/06 to [facility]. There are no additional needs.
[2021-04-06 15:34] VITALS: BP 120/69; PULSE 74; TEMP 98.2
--- NOTE | 2021-04-06 17:05 | NUR ---
patient transferring to [facility], I have given report to ERNST Chery, IV and tele removed, patient transported over by wheelchair by MARQUEZ Mccoy
== END 2021-04-06 17:06 | DRG 872 ==
LOC: COL.ER 12:09 → SURG 14:46
PROVIDERS: Emergency Medicine; Physician Assistant; ADMIT Student in an Organized Health Care Education/Training Program
DX: A41.9 Sepsis, unspecified organism (principal); N39.0 Urinary tract infection, site not specified; I48.92 Unspecified atrial flutter; I42.8 Other cardiomyopathies; I50.22 Chronic systolic (congestive) heart failure; J45.909 Unspecified asthma, uncomplicated; R42 Dizziness and giddiness; G35 Multiple sclerosis; I95.9 Hypotension, unspecified; G47.33 Obstructive sleep apnea (adult) (pediatric); E11.40 Type 2 diabetes mellitus with diabetic neuropathy, unspecified; I48.0 Paroxysmal atrial fibrillation; I95.1 Orthostatic hypotension; G25.81 Restless legs syndrome; H26.9 Unspecified cataract; D64.9 Anemia, unspecified; Z20.822 Contact with and (suspected) exposure to COVID-19; Z86.73 Personal history of transient ischemic attack (TIA), and cerebral infarction without residual deficits; Z79.01 Long term (current) use of anticoagulants; Z95.2 Presence of prosthetic heart valve; Z88.0 Allergy status to penicillin; Z88.1 Allergy status to other antibiotic agents; Z95.820 Peripheral vascular angioplasty status with implants and grafts
CPT/HCPCS: 99223-AI; 99239; J0696; J0744; J1160; J1815; J7030

== ENCOUNTER 2021-04-06 13:14 | Inpatient (IN) | payer MEDICARE, OTHER ==
[~2021-04-06] VITALS: Ht 180.3 cm; Wt 110.6 kg
[~2021-04-06 13:14] MED LIST changes: +FARXIGA5 PO; +IPRATROPIUM BROM3 M1 IH; +OZEMPIC1 MG/0.75 SQ; +TYLENOL 325MG325 MG PO; +ZEBETA10 MG PO
--- NOTE | 2021-04-06 16:30 | NUR ---
Patient arrived to Room 334 at 1630 this afternoon and weight was taken on the standing scale. Patient was oriented to the unit per Darius/MARQUEZ. He is currently sitting in his wheelchair, call light in reach and alarm set. Will continue to monitor.
[2021-04-06 18:00] VITALS: BP 129/75; PULSE 75; TEMP 98.2
--- NOTE | 2021-04-07 04:23 | NUR ---
PT HAS BEEN SLEEPING WELL WITH CPAP.
[2021-04-07 04:54] VITALS: BP 128/71; PULSE 78; TEMP 97.8
--- NOTE | 2021-04-07 08:15 | NUR ---
Pt assessment complete. Pt is sitting up in bed watching tv upon entry, he is A/O x4. His breathing is even and unlabored on RA. Pt denies SOB. Low back pain 3/10 at this time. Does not need intervention currently. Denies N/V. L leg and arm slightly weaker than right side. No needs at this time. Call light within reach.
--- NOTE | 2021-04-07 09:49 | NUR ---
Met w/ pt to complete SW assessment. Pt lives alone in a 1 story home w/ 2 steps w/ bilateral handrails. Pt has a basement, which is rented out to 2 tenants, who help pt as needed. The bathroom has a walk in tub w/ door, grab bars, & hand held shower head. The toliet is ADA height w/ arm attachments. Pt reported he was walking w/ a r/walker & independent w/ his self care & IADL's. Pt reports driving. [facility]acy: [facility] & reports he has no concerns or issues w/ affording his medications. He does not have DPOA but does have the paperwork to complete. Offered assistance if he needs help when he starts filling it out. Did explain the rehab process & plan. Pt had no questions/concerns at this time about his rehab stay. SW will contine to work w/ pt during his stay to ensure d/c recommendations from the team, as plan is for him to return home.
[2021-04-07 17:02] VITALS: BP 122/73; PULSE 73; TEMP 98.1
--- NOTE | 2021-04-07 18:18 | NUR ---
Pt in chair between therapies. Minimal pain through the day. Had a good appetite. Assistance to bathroom with mod/touch assist. Pt able to complete hygiene independently and sit to stand independently. No needs at this time.
--- NOTE | 2021-04-07 21:00 | NUR ---
PATIENT IS CALM IN THE ROOM.DUE MEDS GIVEN.DENIES PAIN.SAFETY MEASURES IN PLACE.NO OTHER NEEDS AT THIS TIME.
--- NOTE | 2021-04-08 06:03 | NUR ---
PATIENT HAD A CALM NIGHT.DENIES PAIN.SAFETY MEASURES IN PLACE.NO OTHER NEEDS AT THIS TIME.
[2021-04-08 06:21] VITALS: BP 142/78; PULSE 74; TEMP 98.1
[2021-04-08 07:05] LABS: INR 4.3 (0.8-3.0)
[2021-04-08 07:07] LABS: PROTHROMBIN TIME 48.5 SECONDS (9.7-12.8)
--- NOTE | 2021-04-08 08:18 | NUR ---
Patient restingin bed, call light in reach and bed alarm set. Denies any questions at this time.
--- NOTE | 2021-04-08 09:44 | NUR ---
Patient attending therapies at this time.
--- NOTE | 2021-04-08 13:41 | NUR ---
Holding eliquis due to critical value PT per pharmacy.
--- NOTE | 2021-04-08 14:41 | NUR ---
Patient tolerating diet well this shift. He did not receive his correct meal this afternoon, but did call the kitchen and they brought him up his corrected meal. Patient currently working on his computer sitting in his recliner. Denies questions or pain at this time. Will continue to monitor.
[2021-04-08 15:30] VITALS: BP 118/71; PULSE 77; TEMP 97.8
[2021-04-09 06:16] VITALS: BP 133/74; PULSE 66; TEMP 98.4
--- NOTE | 2021-04-09 06:17 | NUR ---
RESTING QUIETLY. NO c/o PAIN. GAIT FAIRLY STEADY USING WALKER. STANDBY ASSIST OF 1.
--- NOTE | 2021-04-09 09:04 | NUR ---
Patient reports that he has pain in his feet prior to urinating that has been going on for two months and pain with urination right at the beginning and then it goes away. He said that has improved since he has been in the hospital and use to have pain before urination and during. Will continue to monitor.
[2021-04-09 10:39] LABS: INR 3.4 (0.8-3.0); PROTHROMBIN TIME 37.8 SECONDS (9.7-12.8)
--- NOTE | 2021-04-09 12:12 | NUR ---
Warfarin Follow-up Pharmacy Note Current regimen: Holding due to supratherapeutic INR LABS: INR 3.4 Changes in therapy: Restart Warfarin with 7.5 mg po tonight and then restart home dose of alternating with 10 mg dose every other night. Pharmacy will continue to monitor daily INR levels.
--- NOTE | 2021-04-09 14:53 | NUR ---
Patient has been working on his computer today. He did go on a walk around [facility] this afternoon and was a CGA with ambulation. Patient was a CGA with toileting transfer. Patient had coarse lung sounds this morning and coughed up some yellow sputum. After coughing a few times his lung sounds did improve. Will continue to monitor.
[2021-04-09 15:16] VITALS: BP 113/67; PULSE 72; TEMP 97.8
--- NOTE | 2021-04-09 19:25 | NUR ---
RECEIVED CHANGE OF SHIFT REPORT FROM DAY SHIFT NURSE. PATIENT UP IN CHAIR DURING REPORT WITH CHAIR ALARM ON, CALL LIGHT WITHIN REACH. DENIES ANY NEEDS DURING REPORT.
[2021-04-10 05:27] VITALS: BP 123/76; PULSE 72; TEMP 97.5
[2021-04-10 07:07] LABS: INR 2.8 (0.8-3.0); PROTHROMBIN TIME 31.1 SECONDS (9.7-12.8)
--- NOTE | 2021-04-10 07:40 | NUR ---
CHANGE OF SHIFT REPORT GIVEN TO DAY SHIFT NURSE, EVAN DUKES.
--- NOTE | 2021-04-10 11:10 | NUR ---
Patient alert and oriented, answers questions appropriately. See assessment. Patient with LLE weakness and neuropathy, noted with ambulation. AFO brace to LLE. Patient able to dress self, perform own self cares. After a.m. therapies, sits in recliner using personal computer. No c/o at this time.
[2021-04-10 16:08] VITALS: BP 122/76; PULSE 68; TEMP 97.3
[2021-04-11 04:01] VITALS: BP 1235/79; PULSE 69; TEMP 98.6
--- NOTE | 2021-04-11 04:26 | NUR ---
Came in last night patient is in the reclining chair with his laptop. He is awake and oriented. Gets up by himself. He went back to bed around 1999. He undress himself and slept most of the night. He use the urinal to pee in bed. His bed alarm went once when he tried to get up. Otherwise he denies pain or SOB. No compalins noted overnight. Bedalarm is on and call light within reach.
[2021-04-11 08:00] LABS: INR 2.5 (0.8-3.0); PROTHROMBIN TIME 27.9 SECONDS (9.7-12.8)
--- NOTE | 2021-04-11 08:30 | NUR ---
Warfarin Follow-up Pharmacy Note Current regimen: Warfarin 7.5 mg alternating every other day with 10 mg LABS: INR 2.5 Changes in therapy: Will give Warfarin 10 mg po x1 tonight, and then continue home dosing. Pharmacy will continue to closely monitor daily INR levels.
--- NOTE | 2021-04-11 09:00 | NUR ---
PT HAS BEEN UP AND DRESSED, MEDICATIONS GIVEN PER NOV. ASSESSMENT COMPLETED, PT IS SHOWING INDEPENDENCE WITH ADL'S. STANDBY ASSISTANCE NO TOUCH REQUIRED. THE PATIENT IS NOW WITH THERAPY, AND IS WALKING WITH A WALKER TO THE GYM.
--- NOTE | 2021-04-11 09:43 | NUR ---
Visited w/ pt & informed him of the team conference tomorrow, 04/12/21, & asked if there was anything that he wanted SW to relay to the team. He could not think of anything at this time. Did talk to him about doing a pt/family meeting & he stated he doesn't have any family to do it w/. Offered for the team to meet w/ him which he was interested in. Told him that the team will come to talk to him tomorrow, 04/12/21 around 1:30 pm.
--- NOTE | 2021-04-11 11:32 | NUR ---
Initial visit; Patient thanked Pallet Stone Positioner for looking in on him and offering God's blessings.
--- NOTE | 2021-04-11 14:00 | NUR ---
Admission QIM scores were reviewed by the team. Code of 4 chosen for oral hygiene was determined by team discussion to be the most usual performance before interventions for this patient during the assessment period. Code of 4 chosen for toilet hygiene was determined by team discussion to be the most usual performance for this patient during the assessment period. Code of 5 chosen for upper body dressing was determined by team discussion to be the most usual performance for this patient during the assessment period. Code of 4 chosen for lower body dressing was determined by team discussion to be the most usual performance for this patient during the assessment period. Code of 3 chosen for putting on/taking off footwear was determined by team discussion to be the most usual performance for this patient during the assessment period. Code of 3 for sit to stand was determined by team discussion to be the most usual performance for this patient during the assessment period. Code of 3 chosen for walk 10 feet was determined by team discussion to be the most usual performance for this patient during the assessment period. Code of 88 chosen for walk 50 feet w/ 2 turns was determined by team discussion to be the most usual performance for this patient during the assessment period.--Renee Fernandez, PD
[2021-04-11 15:38] VITALS: BP 115/75; PULSE 71; TEMP 97.6
--- NOTE | 2021-04-12 04:27 | NUR ---
Patient is awake and oriented andgets up by himself with walker. He went to bed at 2000 and undress himself without any help. He called to use the bathroom with no assistance he just wants somebody to watch him. Otherwise he denies pain or SOB. No complain noted all night. Calllight within reach, continue to follow.
[2021-04-12 05:05] VITALS: BP 120/70; PULSE 70; TEMP 98
[2021-04-12 07:15] LABS: INR 2.1 (0.8-3.0); PROTHROMBIN TIME 23.5 SECONDS (9.7-12.8)
--- NOTE | 2021-04-12 08:38 | NUR ---
Patient up to recliner SBA. Alert and oriented x 3. Assessment complete. Denies pain at this time. Brace to LLE noted. Denies further needs at this time.
--- NOTE | 2021-04-12 13:30 | NUR ---
Conducted patient meeting to review Team Conference. Also present was the PT, OT, & Informatics Consultant/SW. Team explained how pt was doing & going to make him modified independent in his room, which he was pleased w/. Informed him of d/c for 04/14/21, to home w/ home health. He had some questions about home health which were answered. After the meeting, pt was provided a copy of the Team Conference note & home health list for [place].
--- NOTE | 2021-04-12 18:13 | NUR ---
Patient doing well throughout the day, up independently in room with steady gait and walker. Friend in to visit this afternoon. Patient denies needs at this time. Will report off to shift commander.
[2021-04-12 18:46] VITALS: BP 148/74; PULSE 72; TEMP 98
--- NOTE | 2021-04-12 19:00 | NUR ---
RECEIVED CHANGE OF SHIFT REPORT FROM DAY SHIFT NURSE. PATIENT UP IN ROOM AD EVERT WITH NO REPORTED COMPLAINTS OF PROBLEMS OR CONCERNS.
[2021-04-13 05:45] VITALS: BP 118/68; PULSE 65; TEMP 97.7
[2021-04-13 06:47] LABS: INR 2.1 (0.8-3.0); PROTHROMBIN TIME 23.5 SECONDS (9.7-12.8)
--- NOTE | 2021-04-13 07:31 | NUR ---
CHANGE OF SHIFT REPORT GIVEN TO DAY SHIFT NURSE, LAUREN DUKES.
--- NOTE | 2021-04-13 08:17 | NUR ---
Warfarin Follow-up Pharmacy Note Current regimen: Warfarin 10 mg po qHS (past 3 days) LABS: INR 2.1 Changes in therapy: Will give Warfarin 10 mg po x1 dose tonight and then resume home dosing of 10 mg po alternating every other day with 7.5 mg. Pharmacy will continue to closely monitor INR levels.
--- NOTE | 2021-04-13 09:31 | NUR ---
Patient resting in recliner and is independent in his room. He removed his tejas hose independently. Has bruising to bilateral arms from prior blood draws. Will continue to monitor.
--- NOTE | 2021-04-13 11:32 | NUR ---
Visited w/ pt about d/c plans for tomorrow, 04/14/21. He stated he feels he is ready & doesn't have any concerns at this time. Did inquire about his home health choice & he decided on [facility]. Told him that SW would make the referral & then they would call him after he is home. Did make sure that he had the recommending equipment at home, which he confirmed he had. Reviewed the Medicare Rights form & pt signed the form.
--- NOTE | 2021-04-13 13:11 | NUR ---
Attempted to contact Monty at [facility]. He was not available so left message regarding referral. Faxed referral information.
[2021-04-13 18:02] VITALS: BP 123/80; PULSE 66; TEMP 98.2
--- NOTE | 2021-04-13 21:00 | NUR ---
PT MOD I IN ROOM. PT RELATES FEELS SAFE WITH STATUS. SITTING IN RECLINER. SAROJS NEEDS A THTIS ITME.
--- NOTE | 2021-04-14 00:13 | NUR ---
PT SLEEPING WITH CPAP ON. USED URINAL. STAFF EMPTIED URINAL.
[2021-04-14 05:54] VITALS: BP 126/78; PULSE 66; TEMP 97.8
[2021-04-14 07:16] LABS: INR 2.2 (0.8-3.0); PROTHROMBIN TIME 25.1 SECONDS (9.7-12.8)
[2021-04-14] MEDS ORDERED: PROAIR HFA0.09 MG/AC IH (08:37)
--- NOTE | 2021-04-14 08:53 | NUR ---
Patient resting in recliner, call light in reach and indpendent in his room. Denies pain. Looking forward to being discharged today.
--- NOTE | 2021-04-14 09:00 | NUR ---
Visited w/ pt about d/c plans today, 04/14/21. Informed him that [facility] has accepted him & will call him once he's home to schedule when they will come in, which pt stated he understood. He did not have any questions or concerns about his d/c & felt he was ready to go home.
--- NOTE | 2021-04-14 12:20 | NUR ---
Faxed Home Health orders & d/c summary to [facility].
--- NOTE | 2021-04-14 14:47 | NUR ---
Patient Health Summary, Discharge Summary, and Home Meds printed and reviewed with patient. Stressed importance of follow up appointments. Belongings gathered by Lucinda including the following: computer and hopper filler, phone and hopper filler, CPAP, and other misc. personal items. Patient transported via wheelchair by Lucinda and seatbelted for ride home with friend. Patient denied questions.
== END 2021-04-14 13:45 | disposition home health service (06) | DRG 59 ==
PROVIDERS: ADMIT Internal Medicine
DX: G35 Multiple sclerosis (principal); I48.92 Unspecified atrial flutter; I50.22 Chronic systolic (congestive) heart failure; N39.0 Urinary tract infection, site not specified; I42.9 Cardiomyopathy, unspecified; I48.0 Paroxysmal atrial fibrillation; E11.40 Type 2 diabetes mellitus with diabetic neuropathy, unspecified; G47.33 Obstructive sleep apnea (adult) (pediatric); I11.0 Hypertensive heart disease with heart failure; I95.9 Hypotension, unspecified; I48.91 Unspecified atrial fibrillation; K21.9 Gastro-esophageal reflux disease without esophagitis; J45.909 Unspecified asthma, uncomplicated; G25.81 Restless legs syndrome; H26.9 Unspecified cataract; B96.1 Klebsiella pneumoniae [K. pneumoniae] as the cause of diseases classified elsewhere; E78.5 Hyperlipidemia, unspecified; R53.81 Other malaise; Z99.81 Dependence on supplemental oxygen; Z79.01 Long term (current) use of anticoagulants; Z95.0 Presence of cardiac pacemaker; Z95.2 Presence of prosthetic heart valve; Z91.81 History of falling; Z88.0 Allergy status to penicillin; Z88.1 Allergy status to other antibiotic agents
CPT/HCPCS: 99222-AI; 99231-AI; 99232-AI; 99239; J1815

== ENCOUNTER 2021-04-20 13:21 | Emergency (ER) | payer MEDICARE, OTHER ==
[~2021-04-20] VITALS: Ht 180.3 cm; Wt 110.5 kg
[~2021-04-20 13:21] MED LIST changes: +PROAIR HFA0.09 MG/AC IH
[2021-04-20 13:44] LABS: BASO # 0.1 (0.0-0.2); BASO % 0.5 % (0.0-2.0); EOS # 0.1 (0.0-0.7); EOS % 1.2 % (0-4.0); GRAN # 9.4 (1.4-6.5); GRAN % 81.1 % (42.2-75.2); HEMATOCRIT 43.4 % (42.0-52.0); HEMOGLOBIN 13.8 g/dl (13.5-18.0); LYMPH # 1.1 (1.2-3.4); LYMPH % 9.2 % (20.0-51.0); MEAN CELL VOLUME 80 fl (80.0-100.0); MEAN CORPUSCULAR HEMOGLOBIN 25 pg (27.0-31.0); MEAN CORPUSCULAR HGB CONC 32 g/dl (33.0-37.0); MEAN PLATELET VOLUME 11.5 fl (7.4-10.4); MONO # 0.9 (0.1-0.6); MONO % 7.7 % (1.7-9.3); PLATELET COUNT 245 K/mm3 (130-400); RED BLOOD COUNT 5.44 M/mm3 (4.20-5.60); REDCELL DISTRIBUTION WIDTH-CV 14.8 % (11.5-14.5)
[2021-04-20 13:55] LABS: INR 3.1 (0.8-3.0); PROTHROMBIN TIME 34.9 SECONDS (9.7-12.8)
[2021-04-20 13:58] LABS: PARTIAL THROMBOPLASTIN TIME 44.4 SECONDS (26.0-37.0)
[2021-04-20 14:07] LABS: ALBUMIN 3.9 gm/dL (3.5-5.0); CALCIUM 8.9 mg/dL (8.4-10.2); CREATININE, serum 0.92 (0.66-1.25); POTASSIUM 3.7 mmol/L (3.4-5.0); TOTAL PROTEIN 7.8 gm/dL (6.4-8.2)
[2021-04-20 14:17] LABS: TROPONIN-I 0.013 ng/mL (0.000-0.035)
[2021-04-20 19:05] VITALS: BP 118/68; PULSE 74; TEMP 98.2
== END 2021-04-20 19:05 | disposition home or self-care (01) ==
LOC: COL.ER 13:21
PROVIDERS: Family Medicine
DX: E86.0 Dehydration (principal); R55 Syncope and collapse; Z95.4 Presence of other heart-valve replacement; Z95.0 Presence of cardiac pacemaker
CPT/HCPCS: J7030

== ENCOUNTER 2022-05-16 08:06 | Inpatient (IN) | payer MEDICARE, OTHER ==
[~2022-05-16] VITALS: Ht 180.3 cm; Wt 103.1 kg
[~2022-05-16 08:06] MED LIST changes: -VITAMIN D 1001000 IU; +VITAMIN D31000 I1 PO
[2022-05-16 09:18] LABS: BASO # 0.1 K/mm3 (0.0-0.2); BASO % 0.3 % (0.0-2.0); EOS % 0.1 % (0.0-4.0); GRAN # 14.6 K/mm3 (1.4-6.5); GRAN % 86.2 % (42.2-75.2); HEMATOCRIT 44.5 % (42.0-52.0); HEMOGLOBIN 14.4 g/dl (13.5-18.0); LYMPH # 0.8 K/mm3 (1.2-3.4); LYMPH % 4.6 % (20.0-51.0); MEAN CELL VOLUME 79 fl (80.0-100.0); MEAN CORPUSCULAR HEMOGLOBIN 26 pg (27-31); MEAN CORPUSCULAR HGB CONC 32 g/dl (33.0-37.0); MEAN PLATELET VOLUME 11.4 fl (7.4-10.4); MONO # 1.4 K/mm3 (0.1-0.6); MONO % 8.2 % (1.7-9.3); PLATELET COUNT 180 K/mm3 (130-400); RED BLOOD COUNT 5.63 M/mm3 (4.20-5.60); REDCELL DISTRIBUTION WIDTH-CV 14.7 % (11.5-14.5)
[2022-05-16 09:22] LABS: COLLECTION METHOD CLEAN CATCH
[2022-05-16 09:36] LABS: URINE APPEARANCE Hazy (CLEAR/HAZY); URINE BLOOD 2+ (NEGATIVE); URINE COLOR Yellow (YELLOW); URINE GLUCOSE Negative (NEGATIVE); URINE KETONE Negative (NEGATIVE); URINE NITRATE Positive (NEGATIVE); URINE PROTEIN(semi-quant) 2+ (NEGATIVE); URINE UROBILINOGEN 0.2 E.U/dL (0.2-1.0)
[2022-05-16 09:37] LABS: MONOSCREEN NEGATIVE
[2022-05-16 09:38] LABS: ALBUMIN 3.8 gm/dL (3.4-4.8); CREATININE, serum 1.14 mg/dL (0.72-1.25); POTASSIUM 3.7 mmol/L (3.5-4.5); TOTAL PROTEIN 8.1 gm/dL (6.2-8.1)
[2022-05-16 09:39] LABS: MUCOUS Present (NOT PRESENT); SQUAMOUS EPITHELIAL None Seen /hpf (0-10); URINE BACTERIA Occasional /hpf (NONE SEEN)
[2022-05-16] MEDS ORDERED: COUMADIN 5MG5 MG/TAB PO (13:31)
[2022-05-16 13:51] LABS: INR 3.3 (0.8-3.0); PROTHROMBIN TIME 38.1 SECONDS (9.7-12.8)
[2022-05-16] MEDS ORDERED: FISH OIL 500 M1 EAC1 PO (14:23)
[2022-05-16 15:34] VITALS: BP 126/72; PULSE 130; TEMP 98.9
--- NOTE | 2022-05-16 17:57 | NUR ---
Pt rested well after arriving to the floor. Has no pain or concerns. External catheter placed. POC discussed, no needs at this time. Call light within reach.
[2022-05-16 20:06] VITALS: BP 130/62; PULSE 93; TEMP 101.6
--- NOTE | 2022-05-16 20:13 | NUR ---
PT HAS FEVER 101.6 ORALLY. NOTIFIED LORY MARRERO. SEE NEW ORDER FOR TYLENOL.
--- NOTE | 2022-05-16 20:30 | NUR ---
PT RESINT IN BED. O2 3L NC. NO RESP DISTRESS. HAS OCCASIONAL LOOSE COUGH. TELE SR. DENIES PAIN. NO NEEDS AT THIS TIME. CALL LIGHT IN REACH. BED ALARM SET.
--- NOTE | 2022-05-16 22:03 | NUR ---
PT USING CPAP THAT BROUGHT IN FOR HIM.
[2022-05-17] VITALS (14 sets, daily range): BP systolic 96–157; BP diastolic 61–91; PULSE 65–147; TEMP 97.6–100.4
[2022-05-17 06:54] LABS: BASO # 0.1 K/mm3 (0.0-0.2); BASO % 0.3 % (0.0-2.0); EOS % 0.1 % (0.0-4.0); GRAN # 12.6 K/mm3 (1.4-6.5); HEMATOCRIT 40.1 % (42.0-52.0); HEMOGLOBIN 12.5 g/dl (13.5-18.0); LYMPH # 0.8 K/mm3 (1.2-3.4); LYMPH % 5.1 % (20.0-51.0); MEAN CELL VOLUME 82 fl (80.0-100.0); MEAN CORPUSCULAR HEMOGLOBIN 26 pg (27-31); MEAN CORPUSCULAR HGB CONC 31 g/dl (33.0-37.0); MEAN PLATELET VOLUME 11.8 fl (7.4-10.4); MONO # 1.3 K/mm3 (0.1-0.6); PLATELET COUNT 152 K/mm3 (130-400); RED BLOOD COUNT 4.88 M/mm3 (4.20-5.60); REDCELL DISTRIBUTION WIDTH-CV 15.2 % (11.5-14.5)
[2022-05-17 07:01] LABS: INR 3.6 (0.8-3.0); PROTHROMBIN TIME 41.5 SECONDS (9.7-12.8)
[2022-05-17 07:09] LABS: CALCIUM 8.8 mg/dL (8.4-10.2); CREATININE, serum 1.4 mg/dL (0.72-1.25); MAGNESIUM 1.7 mg/dL (1.6-2.6); POTASSIUM 3.8 mmol/L (3.5-4.5)
--- NOTE | 2022-05-17 09:07 | NUR ---
PT SITTING UP IN BED WITH PHYSICAL THERAPY. MORNING MEDICATIONS GIVEN. SHIFT ASSESSMENT COMPLETED. PT DENIES ANY PAIN AT THIS TIME. REPORTS WEAKNESS IS SLIGHTLY WORSE THAN AT BASELINE, L WEAKNESS GREATER THAN R. IVF INFUSING. WILL CONTINUE TO MONITOR.
--- NOTE | 2022-05-17 11:07 | NUR ---
Dispatch Manager met with patient to discuss discharge planning. Patient lives in [place] and has a roommate that lives in his basement. Patient sees Dr. Price for primary care and obtains medications from [facility] with no difficulties. Patient has a CPAP and walker at home and reported he is normally independent with ADLS. Patient has had some difficulty with ADLS this past week but stated he was able to stand up today so he is hopeful this is a sign on improvement. Patient advised he has been working on establishing his sister, Trish (ph#[phone]) as DP-HC. Patient advised he plans to return home at time of discharge. Discharge Plan: Home, pending progress
--- NOTE | 2022-05-17 14:31 | NUR ---
Senior Design Engineer met with patient to review discharge plan. SW advised patient that PT/OT as well as Hospitalist feel a SNF stay may be beneficial to him. Patient is agreeable to this. SW reviewed [place] facilities with patient and advised [facility] is full at this time. Patient's preferences are 1) [facility] and 2) [facility]. SW contacted both facilities and faxed referrals. Discharge Plan: SNF
[2022-05-18] VITALS (21 sets, daily range): BP systolic 108–139; BP diastolic 54–77; PULSE 60–95; TEMP 97.3–98.9
--- NOTE | 2022-05-18 05:45 | NUR ---
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 PT RESTING IN BED TALKING TO FAMILY ON HIS CELL PHONE. PT WAS ALSO VISITED BY HIS CLERGY. PT DENIED GENERAL PAIN, CHEST PAIN, N,V, SOB OR DIZZINESS. TELEMETRY CALLED ABOUT PT HAVING A SUSTAINED HR IN THE 150'S WITH WHAT LOOKED AT A.FLUTTER, WITH SOME PAC'S, PJC AND A COUPLE OF PVC'S. HOSPITALIST CALLED. CARDIZEM BOLUS AND DRIP ORDERED AND GIVEN/RAN. VSS. AROUND 0530HRS, PT'S HR STARTED TO DIP INTO THE HIGH 50'S. HOSPITALIST CALL. CARDIZEM ORDERED HELD. CARDIZEM WAS STOPPED. WILL CONTINUE TO MONITOR. PT ALSO HAD ONE EPISODE OF ONE LARGE INCONTINENT LOOSE STOOL. CALL LIGHT WITHIN REACH.
[2022-05-18 06:34] LABS: BASO % 0.3 % (0.0-2.0); EOS # 0.1 K/mm3 (0.0-0.7); EOS % 0.7 % (0.0-4.0); GRAN # 6.9 K/mm3 (1.4-6.5); GRAN % 79.8 % (42.2-75.2); HEMATOCRIT 39.6 % (42.0-52.0); HEMOGLOBIN 12.5 g/dl (13.5-18.0); LYMPH # 0.7 K/mm3 (1.2-3.4); LYMPH % 8.1 % (20.0-51.0); MEAN CELL VOLUME 81 fl (80.0-100.0); MEAN CORPUSCULAR HEMOGLOBIN 26 pg (27-31); MEAN CORPUSCULAR HGB CONC 32 g/dl (33.0-37.0); MEAN PLATELET VOLUME 12.1 fl (7.4-10.4); MONO # 0.9 K/mm3 (0.1-0.6); MONO % 10.4 % (1.7-9.3); PLATELET COUNT 138 K/mm3 (130-400); RED BLOOD COUNT 4.87 M/mm3 (4.20-5.60); REDCELL DISTRIBUTION WIDTH-CV 14.9 % (11.5-14.5)
[2022-05-18 06:38] LABS: INR 3.1 (0.8-3.0); PROTHROMBIN TIME 36.4 SECONDS (9.7-12.8)
[2022-05-18 06:54] LABS: CALCIUM 8.8 mg/dL (8.4-10.2); CREATININE, serum 1.21 mg/dL (0.72-1.25); MAGNESIUM 1.9 mg/dL (1.6-2.6); POTASSIUM 3.2 mmol/L (3.5-4.5)
--- NOTE | 2022-05-18 07:52 | NUR ---
ASSISTED PT UP TO BS, HAD LG LOOSE BM, ASSISTED WITH CLEANUP AND THEN RETURNED TO BED WITH ASSIST X2. ASSESSMENTS COMPLETE, VSS. PT HAS OPEN AREA TO LEFT KNEE, PT REPORTS SCRAPED WHEN HE FELL AT HOME.
--- NOTE | 2022-05-18 10:10 | NUR ---
PT RESTING IN BED ANGELIA DUKESCONCRETE PUMP OPERATOR CONTACTED WITH CONSULT FOR A FLUTTER. WILL DO WORKUP PER ANGELIA.
--- NOTE | 2022-05-18 15:45 | NUR ---
Speech Language Assistant followed up with patient on DPOA-HC. Patient would like to complete form here and designate his sister, Trish and brother Herbert. Patient verbalized understanding of DPOA-HC and provided signature. MARTÍN and MARTÍN Durna provided witness signature. MARTÍN placed copy in chart then provided original and copies to patient. MARTÍN discussed discharge planning with patient. MARTÍN advised that his first preference, [facility] can accept and patient was agreeable to this. MARTÍN contacted Darryl at [facility] and faxed clinical updates. MARTÍN advised tentative DC will be tomorrow. Discharge Plan: [facility] SNF
[2022-05-19 04:16] VITALS: BP 142/76; PULSE 76; TEMP 98.6
--- NOTE | 2022-05-19 05:30 | NUR ---
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 PT RESTING IN BED WITH A FAMILY FRIEND AT HIS BEDSIDE. PT DENIED GENERAL PAIN, CHEST PAIN, PALPITATIONS, SOB, N,V,D OR DIZZINESS. PT HAVE A PRETTY UNEVENTFUL NIGHT. CALL LIGHT WITHIN REACH.
[2022-05-19 07:02] LABS: INR 3.1 (0.8-3.0); PROTHROMBIN TIME 35.6 SECONDS (9.7-12.8)
[2022-05-19 07:06] LABS: BASO % 0.4 % (0.0-2.0); EOS # 0.1 K/mm3 (0.0-0.7); EOS % 1.9 % (0.0-4.0); GRAN # 4.1 K/mm3 (1.4-6.5); GRAN % 72.2 % (42.2-75.2); HEMOGLOBIN 11.5 g/dl (13.5-18.0); LYMPH # 0.6 K/mm3 (1.2-3.4); LYMPH % 11.3 % (20.0-51.0); MEAN CELL VOLUME 79 fl (80.0-100.0); MEAN CORPUSCULAR HEMOGLOBIN 26 pg (27-31); MEAN CORPUSCULAR HGB CONC 33 g/dl (33.0-37.0); MEAN PLATELET VOLUME 11.7 fl (7.4-10.4); MONO # 0.8 K/mm3 (0.1-0.6); MONO % 13.7 % (1.7-9.3); PLATELET COUNT 140 K/mm3 (130-400); RED BLOOD COUNT 4.48 M/mm3 (4.20-5.60); REDCELL DISTRIBUTION WIDTH-CV 14.6 % (11.5-14.5)
[2022-05-19 07:12] LABS: HEMATOCRIT 35.4 % (42.0-52.0)
[2022-05-19 07:25] LABS: CREATININE, serum 0.94 mg/dL (0.72-1.25); MAGNESIUM 1.9 mg/dL (1.6-2.6); POTASSIUM 3.1 mmol/L (3.5-4.5)
[2022-05-19 07:29] VITALS: BP 124/81; PULSE 72; TEMP 98.1
[2022-05-19] MEDS ORDERED: MONUROL 3 GM3 G/PKT PO (09:16)
[2022-05-19] MEDS ORDERED: COUMADIN 77.5 MG/TAB PO (09:18)
[2022-05-19] MEDS ORDERED: IMODIUM 2MG CAPS2 MG PO (09:19)
--- NOTE | 2022-05-19 11:13 | NUR ---
IV DISCONTINUED, PATIENT DRESSED AND BELONGINGS PACKED. PATIENT TAKEN DOWN STAIRS BY 2 HEAD PIECE ASSEMBLER WITH [facility] EMPLOYEE. PATIENT LEFT IN STABLE CONDITION.
--- NOTE | 2022-05-19 11:16 | NUR ---
SW informed that patient would be transfering to [facility] on this day. [facility] staff contacted and they provided he has been accepted. DC documenation faxed to facility, patient picked up approx at 11am. Nothing further.
--- NOTE | 2022-05-19 11:16 | NUR ---
REPORT CALLED TO ERNST DOMINGUEZ AT [facility]. ALL QUESTIONS ANSWERED. NUMBER GIVEN FOR CALL BACK IF NEEDED.
[2022-05-19 11:57] VITALS: BP 106/47; PULSE 101; TEMP 98
[2022-05-19] MEDS ORDERED: LYRICA 100MG C100 M1 PO (17:25)
== END 2022-05-19 11:15 | DRG 872 ==
LOC: COL.ER 08:06 → MEDICAL 10:40
PROVIDERS: Personal Emergency Response Attendant; Physician Assistant; ADMIT Hospitalist
DX: A41.9 Sepsis, unspecified organism (principal); I48.92 Unspecified atrial flutter; N39.0 Urinary tract infection, site not specified; I50.42 Chronic combined systolic (congestive) and diastolic (congestive) heart failure; N17.9 Acute kidney failure, unspecified; R65.20 Severe sepsis without septic shock; Z66 Do not resuscitate; G35 Multiple sclerosis; I48.0 Paroxysmal atrial fibrillation; J45.909 Unspecified asthma, uncomplicated; E11.9 Type 2 diabetes mellitus without complications; Z20.822 Contact with and (suspected) exposure to COVID-19; G47.33 Obstructive sleep apnea (adult) (pediatric); K21.9 Gastro-esophageal reflux disease without esophagitis; E11.40 Type 2 diabetes mellitus with diabetic neuropathy, unspecified; I11.0 Hypertensive heart disease with heart failure; G25.81 Restless legs syndrome; H26.9 Unspecified cataract; R00.1 Bradycardia, unspecified; Z90.49 Acquired absence of other specified parts of digestive tract; Z95.4 Presence of other heart-valve replacement; Z79.01 Long term (current) use of anticoagulants; Z88.1 Allergy status to other antibiotic agents; Z88.0 Allergy status to penicillin; Z86.73 Personal history of transient ischemic attack (TIA), and cerebral infarction without residual deficits; Z88.8 Allergy status to other drugs, medicaments and biological substances; Z23 Encounter for immunization
CPT/HCPCS: J0744; J1956; J7030; J7050; J7120

== ENCOUNTER → 2023-08-22 | Outpatient (CLI) | payer MEDICARE ==
[~2023-08-22] MED LIST changes: +COUMADIN 5MG5 MG/TAB PO; +IMODIUM 2MG CAPS2 MG PO; +MONUROL 3 GM3 G/PKT PO
[2023-08-22 14:50] LABS: HEMATOCRIT 42.1 % (42.0-52.0); HEMOGLOBIN 13.8 g/dl (13.5-18.0); MEAN CELL VOLUME 79 fl (80.0-100.0); MEAN CORPUSCULAR HEMOGLOBIN 26 pg (27-31); MEAN CORPUSCULAR HGB CONC 33 g/dl (33.0-37.0); MEAN PLATELET VOLUME 10.9 fl (7.4-10.4); PLATELET COUNT 212 K/mm3 (130-400); RED BLOOD COUNT 5.34 M/mm3 (4.20-5.60); REDCELL DISTRIBUTION WIDTH-CV 14.3 % (11.5-14.5)
[2023-08-22 15:01] LABS: PROTHROMBIN TIME 21.5 SECONDS (9.7-12.8)
[2023-08-22 15:05] LABS: CALCIUM 9.1 mg/dL (8.4-10.2); CREATININE, serum 1.06 mg/dL (0.72-1.25)
== END ==
LOC: COL.LAB 14:16
PROVIDERS: Physician Assistant
DX: N39.0 Urinary tract infection, site not specified (principal); Z95.2 Presence of prosthetic heart valve

== ENCOUNTER 2023-09-15 03:09 | Inpatient (IN) | payer MEDICARE ==
[2023-09-15] VITALS (8 sets, daily range): BP systolic 113–141; BP diastolic 62–78; PULSE 85–100; TEMP 97.1–99.6
[~2023-09-15] VITALS: Ht 180.3 cm; Wt 105.7 kg
[~2023-09-15 03:09] MED LIST changes: -PRILOTC; +PRILOTC PO
[2023-09-15 03:28] LABS: HEMATOCRIT 44.2 % (42.0-52.0); MEAN CELL VOLUME 81 fl (80.0-100.0); MEAN CORPUSCULAR HEMOGLOBIN 26 pg (27-31); MEAN CORPUSCULAR HGB CONC 32 g/dl (33.0-37.0); MEAN PLATELET VOLUME 10.8 fl (7.4-10.4); PLATELET COUNT 143 K/mm3 (130-400); RED BLOOD COUNT 5.48 M/mm3 (4.20-5.60); REDCELL DISTRIBUTION WIDTH-CV 14.9 % (11.5-14.5)
[2023-09-15 03:40] LABS: CREATININE, serum 1.13 mg/dL (0.72-1.25); POTASSIUM 3.9 mmol/L (3.5-4.5); TOTAL PROTEIN 6.8 gm/dL (6.2-8.1)
[2023-09-15 04:30] LABS: URINE APPEARANCE Clear (CLEAR/HAZY); URINE COLOR Yellow (YELLOW)
[2023-09-15 04:31] LABS: URINE BLOOD 2+ (NEGATIVE); URINE GLUCOSE Negative (NEGATIVE); URINE KETONE TRACE (NEGATIVE); URINE NITRATE Negative (NEGATIVE); URINE PROTEIN(semi-quant) 1+ (NEGATIVE); URINE UROBILINOGEN 0.2 E.U/dL (0.2-1.0)
[2023-09-15 04:41] LABS: COLLECTION METHOD CLEAN CATCH
[2023-09-15 04:42] LABS: MUCOUS Present (NOT PRESENT); SQUAMOUS EPITHELIAL None Seen /hpf (0-10); URINE BACTERIA Rare /hpf (NONE SEEN); URINE RBC 20-50 /hpf (0-2)
[2023-09-15 04:50] LABS: BAND 21 % (0-10); HYPOCHROMIA 1+; NEUTROPHILS 78 % (42.0-75.2); PLATELET ESTIMATE NORMAL (NORMAL)
[2023-09-15 05:18] LABS: PARTIAL THROMBOPLASTIN TIME 41.8 SECONDS (26.0-37.0)
[2023-09-15 05:22] LABS: C-REACTIVE PROTEIN 4.04 mg/dL (0.00-0.50); MAGNESIUM 1.4 mg/dL (1.6-2.6)
[2023-09-15 05:26] LABS: INR 5.6 (0.8-3.0); PROTHROMBIN TIME 57.5 SECONDS (9.7-12.8)
--- NOTE | 2023-09-15 06:05 | NUR ---
Patient arrived to the unit at this time with belongings including glasses. Denies any pain at this time. Water provided, denies any other needs. Assessment and med rec complete. IV in right AC flushes easily with no complications. Oriented patient to room, call light, bed, bathroom, and phone. Call light and personal items in reach. Bed in low position and bed alarm on.
[2023-09-15] MEDS ORDERED: ALDACTONE 25MG25 M1 PO (06:19)
[2023-09-15] MEDS ORDERED: NORVASC 5MG5 MG/TAB PO (06:19)
[2023-09-15] MEDS ORDERED: FARXIGA10 PO (06:19)
[2023-09-15] MEDS ORDERED: TRAVATAN Z 2.52.5 ML OS (06:20)
[2023-09-15] MEDS ORDERED: COZAAR 25MG25 MG/TAB PO (06:21)
[2023-09-15] MEDS ORDERED: LASIX 20MG TABL20 MG PO (06:21)
[2023-09-15] MEDS ORDERED: OMEGA-31 SGL PO (06:21)
[2023-09-15] MEDS ORDERED: OCUVITE1 TA1 PO (06:51)
[2023-09-15] MEDS ORDERED: VITAMIN C500 MG PO (06:51)
[2023-09-15] MEDS ORDERED: IRON TABLETS325 MG PO (06:52)
[2023-09-15] MEDS ORDERED: VITAMIN D 400400 IU PO (06:53)
--- NOTE | 2023-09-15 08:00 | NUR ---
Patient is resting in bed, alert and oriented x 4, at RA. Catheter florez in place, clear yellow output, Telemetry, NSR. Assessment completed, no further needs at this time, call light within reach.
--- NOTE | 2023-09-15 18:45 | NUR ---
PATIENT RESTING IN BED WITH TV ON WITH NO ACUTE DISTRESS NOTED. PATIENT ON ROOM AIR. INT INTACT TO RIGHT AC WITH NO COMPLICATIONS NOTED. BEDSIDE SHIFT REPORT COMPLETED. MICHELLE CATH INTACT AND DRAINING CLEAR YELLOW URINE. ALL NEEDS MET. BED IN LOW POSITION WITH WHEELS LOCKED WITH RAILS UP X3 AND CALL LIGHT WITHIN REACH.
--- NOTE | 2023-09-15 22:37 | NUR ---
PATIENT RESTING IN BED WITH TV OFF WITH NO ACUTE DISTRESS NOTED. PATIENT ON ROOM AIR. ASSESSMENT AND MEDICATION ADMINISTRATION COMPLETED AT THIS TIME. PATIENT REQUESTED ICE AND WATER. BOTH GIVEN. PATIENT MICHELLE DRAINING CLEAR YELLOW URINE. ALL NEEDS MET. BED IN LOW POSITION WITH WHEELS LOCKED WITH RAILS UP X3 AND CALL LIGHT WITHIN REACH. BED ALARM ON.
[2023-09-16] VITALS (12 sets, daily range): BP systolic 118–136; BP diastolic 67–78; PULSE 72–90; TEMP 97.5–97.8
[2023-09-16 07:58] LABS: BASO % 0.1 % (0.0-2.0); GRAN # 7.3 K/mm3 (1.4-6.5); GRAN % 88.5 % (42.2-75.2); HEMATOCRIT 40.6 % (42.0-52.0); HEMOGLOBIN 13.2 g/dl (13.5-18.0); LYMPH # 0.5 K/mm3 (1.2-3.4); LYMPH % 6.1 % (20.0-51.0); MEAN CELL VOLUME 78 fl (80.0-100.0); MEAN CORPUSCULAR HEMOGLOBIN 26 pg (27-31); MEAN CORPUSCULAR HGB CONC 33 g/dl (33.0-37.0); MEAN PLATELET VOLUME 10.9 fl (7.4-10.4); MONO # 0.4 K/mm3 (0.1-0.6); MONO % 4.8 % (1.7-9.3); PLATELET COUNT 118 K/mm3 (130-400); RED BLOOD COUNT 5.18 M/mm3 (4.20-5.60); REDCELL DISTRIBUTION WIDTH-CV 14.9 % (11.5-14.5)
[2023-09-16 08:04] LABS: INR 2.6 (0.8-3.0); PROTHROMBIN TIME 27.5 SECONDS (9.7-12.8)
[2023-09-16 08:10] LABS: CALCIUM 9.1 mg/dL (8.4-10.2); CREATININE, serum 1.04 mg/dL (0.72-1.25); POTASSIUM 4.2 mmol/L (3.5-4.5)
--- NOTE | 2023-09-16 10:24 | NUR ---
SW met with patient to complete intake. Patient shared that he recently had a change in PCP with formerly being Dr Yancey, but has his replacement unsure on the name at this time. Pharmacy of choice is [facility]. Patient reports that he does use DME's to include: CPAP and walker, and daily injectable medication. Patient reports that he is independent with his ADL's. Patient confirmed VANESSA Lu (friend) [phone] and patient currently has a DPOA on file [facility]. Patient is excepting to discharge back to his residence pending any further medical recommendations at this time.
--- NOTE | 2023-09-16 20:28 | NUR ---
PATIENT RESTING IN BED WTIH TV OFF WITH NO ACUTE DISTRESS NOTED. PATIENT ON ROOM AIR. ASSESSMENT AND MEDICATION ADMINISTRATION COMPLETED AT THIS TIME. PATIENT TOLERATED WELL. PATIENT REQUESTED ICE, WATER, AND CPAP BE SET UP. ICE AND WATER GIVEN. STERILE NS GIVEN FOR CPAP. CPAP SET UP ON BEDSIDE TABLE FOR PATIENT. PATIENT DENIES ANY OTHER NEEDS. BED IN LOW POSITION [facility] WHEELS LOCKED WITH RAILS UP X3 AND CALL LIGHT WITHIN REACH. BED ALARM ON.
[2023-09-17] VITALS (12 sets, daily range): BP systolic 123–145; BP diastolic 68–86; PULSE 70–74; TEMP 97.8–98.3
[2023-09-17 06:48] LABS: BASO % 0.1 % (0.0-2.0); GRAN # 7.8 K/mm3 (1.4-6.5); GRAN % 86.3 % (42.2-75.2); HEMATOCRIT 38.6 % (42.0-52.0); HEMOGLOBIN 12.7 g/dl (13.5-18.0); LYMPH # 0.6 K/mm3 (1.2-3.4); LYMPH % 6.4 % (20.0-51.0); MEAN CELL VOLUME 77 fl (80.0-100.0); MEAN CORPUSCULAR HEMOGLOBIN 25 pg (27-31); MEAN CORPUSCULAR HGB CONC 33 g/dl (33.0-37.0); MEAN PLATELET VOLUME 11.8 fl (7.4-10.4); MONO # 0.6 K/mm3 (0.1-0.6); MONO % 6.4 % (1.7-9.3); PLATELET COUNT 129 K/mm3 (130-400); REDCELL DISTRIBUTION WIDTH-CV 15.1 % (11.5-14.5)
[2023-09-17 06:55] LABS: INR 1.9 (0.8-3.0); PROTHROMBIN TIME 20.1 SECONDS (9.7-12.8)
[2023-09-17 07:09] LABS: ALBUMIN 2.7 gm/dL (3.4-4.8); BILIRUBIN,TOTAL 0.5 mg/dL (0.2-1.2); CALCIUM 9.2 mg/dL (8.4-10.2); CREATININE, serum 1.2 mg/dL (0.72-1.25); POTASSIUM 4.5 mmol/L (3.5-4.5); TOTAL PROTEIN 6.3 gm/dL (6.2-8.1)
[2023-09-17] MEDS ORDERED: COUMADIN 77.5 MG/TAB PO (10:55)
--- NOTE | 2023-09-17 12:27 | NUR ---
Patient alert and oriented x4. Shift assessment complete this morning. Patient noted to have cough, no mucus production noted. Patient struggled with sitting up on his own for lung sound assessment, weakness is main concern. Denies pain. Urine output adequate through florez, urine is yellow and clear. Appetite is adequate. Patient in bed with call light in reach, all needs met at this time.
[2023-09-17] MEDS ORDERED: XALATAN EYE DROPS OD (15:40)
[2023-09-17] MEDS ORDERED: OZEMPIC2 MG/0.75 SQ (15:41)
[2023-09-17] MEDS ORDERED: LYRICA 150MG C150 MG PO (15:42)
[2023-09-17] MEDS ORDERED: GLUCOPHAGE500 MG/TAB PO (15:43)
[2023-09-17] MEDS ORDERED: VOLTAREN GEL 1%1 TU TOP (15:43)
[2023-09-17] MEDS ORDERED: FLOVENT DI100 MCG/Ac IH (15:44)
--- NOTE | 2023-09-17 19:42 | NUR ---
Patient remains stable. Ambulating often from bed to recliner, ambulated to bathroom once to have a bowel movement. Patient able to stand and clean himself up with SBA. PT reports patient is close to his baseline. Denies pain or discomfort. Appetite adequate. Currently in recliner with call light in reach, all needs met at this time.
--- NOTE | 2023-09-17 20:00 | NUR ---
Patient resting in chair. Denies any pain at this time. Assessment complete. IV in right AC flushes but appears infiltrated, IV removed. Bay discontinued with no complications. Assissted patient to bathroom and back to bed. Call light and personal items in reach. Bed in low position and bed alarm on.
[2023-09-18] VITALS (7 sets, daily range): BP systolic 125–164; BP diastolic 73–86; PULSE 64–65; TEMP 97.6–98.2
--- NOTE | 2023-09-18 06:15 | NUR ---
Patient resting in bed. Denies any pain or needs. Patient had an uneventful evening. Call light and personal items in reach. Bed in low position and bed alarm on.
[2023-09-18] MEDS ORDERED: DOXYCYCLINE 10100 MG PO (10:15)
[2023-09-18] MEDS ORDERED: OMNICEF 300MG300 MG PO (10:16)
[2023-09-18] MEDS ORDERED: COUMADIN 5MG5 MG/TAB PO (10:17)
[2023-09-18 11:27] LABS: BASO % 0.1 % (0.0-2.0); EOS % 0.1 % (0.0-4.0); GRAN # 7.6 K/mm3 (1.4-6.5); GRAN % 81.8 % (42.2-75.2); HEMATOCRIT 42.1 % (42.0-52.0); HEMOGLOBIN 13.8 g/dl (13.5-18.0); LYMPH # 0.9 K/mm3 (1.2-3.4); LYMPH % 9.5 % (20.0-51.0); MEAN CELL VOLUME 78 fl (80.0-100.0); MEAN CORPUSCULAR HEMOGLOBIN 26 pg (27-31); MEAN CORPUSCULAR HGB CONC 33 g/dl (33.0-37.0); MEAN PLATELET VOLUME 11.1 fl (7.4-10.4); MONO # 0.7 K/mm3 (0.1-0.6); MONO % 7.1 % (1.7-9.3); PLATELET COUNT 137 K/mm3 (130-400); RED BLOOD COUNT 5.39 M/mm3 (4.20-5.60); REDCELL DISTRIBUTION WIDTH-CV 14.7 % (11.5-14.5)
[2023-09-18 11:37] LABS: INR 1.5 (0.8-3.0)
[2023-09-18 11:39] LABS: CALCIUM 9.4 mg/dL (8.4-10.2); CREATININE, serum 1.12 mg/dL (0.72-1.25); POTASSIUM 3.9 mmol/L (3.5-4.5)
--- NOTE | 2023-09-18 11:42 | NUR ---
Patient alert and oriented x4. Shift assessment complete this morning, no new variances noted. Nonproductive cough continues. Patient denies pain. No IV site at this time, attempted twice with no success. Patient has discharge orders for today. Redness continues to bottom, small open areas noted to gluteal fold. Waffle cushion provided for chair. Bay discontinued over night, patient able to urinate on his own. Patient voices no concerns at this time. In bed with call light in reach.
--- NOTE | 2023-09-18 15:19 | NUR ---
Discharge instructions discussed with patient including follow-up appointments, medications changes, and education packets. Patient verbalized understanding. IV discontinued overnight, telemetry off. Patient voices no concerns at time of discharge. Patient escorted out by staff via wheelchair.
--- NOTE | 2023-09-18 16:04 | NUR ---
Director Hair contacted patient to discuss home health services. Patient is agreeable to this and would like to use [facility] as he has used them in the past. MARTÍN contacted Alexis at [facility] and faxed referral with discharge orders. Alexis advised they can accept and have him scheduled for Saturday.
== END 2023-09-18 15:00 | disposition home health service (06) | DRG 871 ==
LOC: COL.ER 03:09 → MEDICAL 05:44
PROVIDERS: Nurse Practitioner Primary Care; Personal Emergency Response Attendant; Physician Assistant; ADMIT Internal Medicine
PROC: XW033E5 Introduction of Remdesivir Anti-infective into Peripheral Vein, Percutaneous Approach, New Technology Group 5 (ICD-10-PCS; principal; 2023-09-15)
DX: A41.89 Other specified sepsis (principal); J12.82 Pneumonia due to coronavirus disease 2019; U07.1 COVID-19; E87.20 Acidosis, unspecified; I48.20 Chronic atrial fibrillation, unspecified; G47.33 Obstructive sleep apnea (adult) (pediatric); G35 Multiple sclerosis; E78.5 Hyperlipidemia, unspecified; K21.9 Gastro-esophageal reflux disease without esophagitis; G25.81 Restless legs syndrome; I10 Essential (primary) hypertension; E11.40 Type 2 diabetes mellitus with diabetic neuropathy, unspecified; T45.515A Adverse effect of anticoagulants, initial encounter; Z99.89 Dependence on other enabling machines and devices; Z88.0 Allergy status to penicillin; Z88.8 Allergy status to other drugs, medicaments and biological substances; Z79.01 Long term (current) use of anticoagulants; Z95.4 Presence of other heart-valve replacement; Z79.899 Other long term (current) drug therapy; Z95.1 Presence of aortocoronary bypass graft; Z23 Encounter for immunization
CPT/HCPCS: A4314; A9284; J0248; J0696; J1200; J1815; J1956; J3475; J7030; J7050; J8540; Q9967

== ENCOUNTER 2023-10-19 14:11 | Inpatient (IN) | payer MEDICARE ==
[~2023-10-19] VITALS: Ht 180.3 cm; Wt 97.2 kg
[~2023-10-19 14:11] MED LIST changes: +DOXYCYCLINE 10100 MG PO; +FARXIGA10 PO; +FLOVENT DI100 MCG/Ac IH; +IRON TABLETS325 MG PO; +LYRICA 150MG C150 MG PO; +OCUVITE1 TA1 PO; +OMEGA-31 SGL PO; +OZEMPIC2 MG/0.75 SQ; +TRAVATAN Z 2.52.5 ML OS; +VITAMIN D 400400 IU PO; +VOLTAREN GEL 1%1 TU TOP; +XALATAN EYE DROPS OD
[2023-10-19] MEDS ORDERED: NS 1,000 ML IV ONE ×3 (14:30→14:45)
[2023-10-19] MEDS ORDERED: Acetaminophen 325 MG TAB PO ONE (14:30)
[2023-10-19 14:40] LABS: BASO % 0.2 % (0.0-2.0); EOS % 0.2 % (0.0-4.0); GRAN % 85.2 % (42.2-75.2); HEMATOCRIT 40.1 % (42.0-52.0); HEMOGLOBIN 13.2 g/dl (13.5-18.0); LYMPH # 0.9 K/mm3 (1.2-3.4); LYMPH % 5.2 % (20.0-51.0); MEAN CELL VOLUME 77 fl (80.0-100.0); MEAN CORPUSCULAR HEMOGLOBIN 25 pg (27-31); MEAN CORPUSCULAR HGB CONC 33 g/dl (33.0-37.0); MEAN PLATELET VOLUME 11.1 fl (7.4-10.4); MONO # 1.5 K/mm3 (0.1-0.6); MONO % 8.5 % (1.7-9.3); PLATELET COUNT 183 K/mm3 (130-400); RED BLOOD COUNT 5.24 M/mm3 (4.20-5.60); REDCELL DISTRIBUTION WIDTH-CV 15.4 % (11.5-14.5)
[2023-10-19 14:55] LABS: ALBUMIN 3.2 gm/dL (3.4-4.8); BILIRUBIN,TOTAL 1.1 mg/dL (0.2-1.2); CALCIUM 9.4 mg/dL (8.4-10.2); CREATININE, serum 1.07 mg/dL (0.72-1.25); POTASSIUM 4.1 mmol/L (3.5-4.5); TOTAL PROTEIN 7.5 gm/dL (6.2-8.1)
[2023-10-19] MEDS ORDERED: dexAMETHasone 10 MG/ML VIAL IV ONE (15:15)
[2023-10-19 15:17] LABS: COLLECTION METHOD CLEAN CATCH
[2023-10-19 15:40] LABS: SQUAMOUS EPITHELIAL 0-2 /hpf (0-10); URINE APPEARANCE Clear (CLEAR/HAZY); URINE BLOOD Negative (NEGATIVE); URINE COLOR Yellow (YELLOW); URINE GLUCOSE 3+ (NEGATIVE); URINE KETONE Negative (NEGATIVE); URINE NITRATE Negative (NEGATIVE); URINE PROTEIN(semi-quant) Negative (NEGATIVE); URINE RBC 0-2 /hpf (0-2); URINE UROBILINOGEN 0.2 E.U/dL (0.2-1.0)
[2023-10-19] MEDS ORDERED: Warfarin 1 MG TAB PO PRN (16:00)
[2023-10-19] MEDS ORDERED: Albuterol 90 MCG/PUFF 8 GM MDI IH PRN (16:00)
[2023-10-19] MEDS ORDERED: LR 1,000 ML IV SCH (16:15)
[2023-10-19] MEDS ORDERED: levoFLOXacin 500 MG TAB PO SCH (16:15)
[2023-10-19] MEDS ORDERED: Ondansetron 4 MG/2 ML VIAL IV PRN (16:30)
[2023-10-19] MEDS ORDERED: Acetaminophen 500 MG TAB PO PRN (16:30)
[2023-10-19 16:55] VITALS: BP 106/52; PULSE 91; TEMP 98.3
[2023-10-19] MEDS ORDERED: Albuterol 90 MCG/PUFF 8 GM MDI IH SCH (17:00)
[2023-10-19] MEDS ORDERED: Insulin Aspart (NovoLOG) SQ SCH (17:00)
--- NOTE | 2023-10-19 17:00 | NUR ---
Pt arrived to medical floor by bed from ED. Pt is awake, alert and oriented x4. Admission assessment completed. INT to Lt wrist patent with no redness, swelling, or drainage. Oriented pt to room, call light, and phone. Rt [place] abrasion noted in assessment. O2 via oxymask at 2L in place. VSS. Pt reports no pain at this time. Contact/Droplet precautions in place. Fall precautions in place. Home medications reviewed. Pt has no complaints at this time. Call light within reach.
[2023-10-19 18:20] VITALS: BP_SYST 106
[2023-10-19] MEDS ORDERED: Budesonide Neb Susp 0.5 MG/2 ML AMP IH SCH (19:00)
[2023-10-19] MEDS ORDERED: Fluticasone Diskus 100 MCG **** subs to Budesonide 0.5 MG Nebs IH SCH (19:00)
[2023-10-19 19:51] VITALS: BP 136/67; PULSE 91; TEMP 98
[2023-10-19 21:00] VITALS: BP_SYST 136
[2023-10-19] MEDS ORDERED: [UNRECOGNIZED DRUG - OTHER] IH SCH (21:00)
[2023-10-19] MEDS ORDERED: BUDESONIDE 180 MCG IH SCH (21:00)
[2023-10-19] MEDS ORDERED: Pregabalin 150 MG CAP PO SCH (21:00)
[2023-10-19] MEDS ORDERED: [UNRECOGNIZED DRUG - REMARK] NS SCH (21:00)
[2023-10-19] MEDS ORDERED: Travoprost Ophth Soln **** subs to Latanoprost Ophth Soln OP SCH (21:00)
[2023-10-19] MEDS ORDERED: Eye Formula MVI w/Minerals TABLET PO SCH (21:00)
[2023-10-19] MEDS ORDERED: Atorvastatin 40 MG TAB PO SCH (21:00)
[2023-10-19] MEDS ORDERED: Montelukast 10 MG TAB PO SCH (21:00)
[2023-10-19] MEDS ORDERED: Warfarin 5 MG TAB PO SCH (21:00)
[2023-10-19] MEDS ORDERED: rOPINIRole 1 MG TAB PO SCH (21:00)
[2023-10-19] MEDS ORDERED: Latanoprost 0.005% Ophth Soln 2.5 ML BOTTLE OP SCH ×2 (21:00)
[2023-10-19 22:33] LABS: INR 3.9 (0.8-3.0); PROTHROMBIN TIME 41.2 SECONDS (9.7-12.8)
--- NOTE | 2023-10-19 23:45 | NUR ---
patient lying in bed, alert and oriented x4. pt denies chest pain and shortness of breath reported only with exertion and no o2 mask. IV in LW is patent, site is clean dry and intact with LR running at 75 ml/hr. small red, slosed abrasion noted on right doll, small scattered genral bruising on extremities. pt has no further needs, questions, or concerns at this time. fall pecautions in place, call light within reach. will continue to monitor.
[2023-10-19 23:50] VITALS: BP 147/77; PULSE 96; TEMP 98.8
[2023-10-20] VITALS (15 sets, daily range): BP systolic 119–154; BP diastolic 66–78; PULSE 75–118; TEMP 97.4–987.2
[2023-10-20 07:53] LABS: BASO % 0.1 % (0.0-2.0); GRAN # 14.2 K/mm3 (1.4-6.5); GRAN % 88.8 % (42.2-75.2); HEMATOCRIT 37.4 % (42.0-52.0); HEMOGLOBIN 11.9 g/dl (13.5-18.0); LYMPH # 0.8 K/mm3 (1.2-3.4); MEAN CELL VOLUME 78 fl (80.0-100.0); MEAN CORPUSCULAR HEMOGLOBIN 25 pg (27-31); MEAN CORPUSCULAR HGB CONC 32 g/dl (33.0-37.0); MEAN PLATELET VOLUME 10.6 fl (7.4-10.4); MONO # 0.9 K/mm3 (0.1-0.6); MONO % 5.6 % (1.7-9.3); PLATELET COUNT 169 K/mm3 (130-400); REDCELL DISTRIBUTION WIDTH-CV 15.3 % (11.5-14.5)
[2023-10-20 08:04] LABS: INR 3.9 (0.8-3.0); PROTHROMBIN TIME 41.1 SECONDS (9.7-12.8)
[2023-10-20 08:16] LABS: CALCIUM 8.9 mg/dL (8.4-10.2); CREATININE, serum 0.98 mg/dL (0.72-1.25); MAGNESIUM 1.4 mg/dL (1.6-2.6)
[2023-10-20] MEDS ORDERED: Bisoprolol 5 MG TAB PO SCH (09:00)
[2023-10-20] MEDS ORDERED: Omega-3 Fatty Acid Esters (OTC) 1,000 MG CAP PO SCH (09:00)
[2023-10-20] MEDS ORDERED: Ascorbic Acid 500 MG TAB PO SCH (09:00)
[2023-10-20] MEDS ORDERED: dexAMETHasone 4 MG TAB PO SCH (09:00)
[2023-10-20] MEDS ORDERED: Ferrous Sulfate 325 MG TAB PO SCH (09:00)
[2023-10-20] MEDS ORDERED: Losartan 25 MG TAB PO SCH (09:00)
[2023-10-20] MEDS ORDERED: Spironolactone 25 MG TAB PO SCH (09:00)
[2023-10-20] MEDS ORDERED: Fluticasone Nasal 50 MCG/Spray 16 GM BOTTLE NS SCH (09:00)
[2023-10-20] MEDS ORDERED: Magnesium Sulfate 8% 50 ML IV ONE (09:30)
[2023-10-20] MEDS ORDERED: levoFLOXacin 750 MG TAB PO SCH (16:00)
[2023-10-20] MEDS ORDERED: Magnesium Oxide 400 MG TAB PO SCH (17:00)
--- NOTE | 2023-10-20 21:37 | NUR ---
patient lying in bed, alert and oriented x4. pt denies chest pain and shortness of breath. IV in LW is patent, site is clean dry and intact. generalized small scattered bruising and scabs on extremities, right small closed doll abrasion with slight blanchable redness noted. pt has no further needs, questions, or concerns at this time. fall precautions in place, call light within reach. will continue to monitor.
[2023-10-21] VITALS (11 sets, daily range): BP systolic 153–167; BP diastolic 71–86; PULSE 59–74; TEMP 97.8–98.8
[2023-10-21 07:37] LABS: INR 2.3 (0.8-3.0); PROTHROMBIN TIME 24.3 SECONDS (9.7-12.8)
[2023-10-21 08:11] LABS: CALCIUM 8.6 mg/dL (8.4-10.2); CREATININE, serum 0.99 mg/dL (0.72-1.25); POTASSIUM 3.9 mmol/L (3.5-4.5)
--- NOTE | 2023-10-21 09:32 | NUR ---
Patient awake, alert and oriented. Denies shortness of breath, nausea, or pain. On room air, comfortable at rest. Bed in lowest position with call light within reach. Denies needs at this time.
--- NOTE | 2023-10-21 10:09 | NUR ---
Patient ambulated to bathroom then to chair, x1 assist with walker. Denies shortness of breath after ambulation, SPO2 after ambulating 92% on room air.
[2023-10-21] MEDS ORDERED: RT ADVAIR 128 DISKUS IH (12:02)
--- NOTE | 2023-10-21 14:38 | NUR ---
Electronics Supervisor met with patient at the doorway to discuss discharge planning. Patient lives alone in [place] and goes to [facility] for primary care. Patient cannot remember who he currently sees as it recently changed. Patient gets his medications filled at [facility] with no difficulties. Patient uses a walker for ambulation and also has grab bars and a stool riser in his bathroom. Patient advised he is normally independent with ADLS and has recently had [facility]. Patient is agreeable to have services initiated again as this is what PT recommends. When asked about Advance Directives, patient advised his sister, Trish Sales (ph#[phone]) is his DPOA-HC. SW faxed referral to [facility]. Discharge Plan: Home with [facility]
[2023-10-21] MEDS ORDERED: metFORMIN 500 MG TAB PO SCH (17:00)
--- NOTE | 2023-10-21 17:59 | NUR ---
Continues to be on room air throughout the day, denies shortness of breath. Sitting up in chair, call light within reach.
--- NOTE | 2023-10-21 20:30 | NUR ---
PT SITTING IN CHAIR UPON ENTERING. PT AMBUALTED STANDY WITH WALKER AND GAIT BELT TO BATHROOM THEN BACK TO BED, GAIT STEADY. ASSESSMENT DONE, MEDS GIVEN PER ORDER. PT DENIES PAIN OR SHORTNESS OF BREATH AT THIS TIME. INT TO LEFT WRIST FLUSHES WELL WITHOUT COMPLICATIONS. PT HAS AN ABARASION TO RIGHT KNEE, NO DRESSING ON AT THIS TIME. LUNGS: UPPER LOBES CLEAR, EXPIRATORY WHEEZES HEARD IN BASES. ALLSION, HOSPITALIST, CALLED FOR AN ORDER FOR CPAP. HOSPITALIST TOLD THIS NURSE IT IS OKAY TO PLACE ORDER. RESPIRATORY CALLED AND IN ROOM UPON THIS NURSE LEAVING. BED IN LOWEST POSITION, CALL LIGHT IN REACH, BED ALARM ON. PT DENEIS NEEDS AT THIS TIME
[2023-10-21] MEDS ORDERED: Warfarin 5 MG TAB PO SCH (21:00)
[2023-10-21] MEDS ORDERED: Doxycycline Monohydrate 100 MG CAP PO SCH (21:00)
[2023-10-22 01:03] VITALS: BP_SYST 155
[2023-10-22 03:10] VITALS: BP 150/73; PULSE 69; TEMP 97.8
[2023-10-22 04:07] VITALS: BP_SYST 150
--- NOTE | 2023-10-22 06:10 | NUR ---
PT LAYING IN BED UPON ENTERING, PT ALERT TO THIS NURSE ENTERING ROOM. CPAP ON, PT REPORTS AND IMPROVEMENT IN SLEEP THIS NIGHT. MED GIVEN PER ORDER. PT REPOSITIONED IN BED AND DENIES NEEDS AT THIS TIME. BED IN LOWEST POSITION, CALL LIGHT IN REACH, BED ALARM ON
[2023-10-22 07:03] VITALS: BP 170/87; PULSE 70; TEMP 97.9
--- NOTE | 2023-10-22 07:10 | NUR ---
REPORT GIVEN TO NICOLAS VASQUEZ RN
[2023-10-22 07:22] LABS: HEMATOCRIT 37.4 % (42.0-52.0); MEAN CELL VOLUME 78 fl (80.0-100.0); MEAN CORPUSCULAR HEMOGLOBIN 25 pg (27-31); MEAN CORPUSCULAR HGB CONC 32 g/dl (33.0-37.0); MEAN PLATELET VOLUME 10.2 fl (7.4-10.4); PLATELET COUNT 177 K/mm3 (130-400); RED BLOOD COUNT 4.81 M/mm3 (4.20-5.60); REDCELL DISTRIBUTION WIDTH-CV 15.2 % (11.5-14.5)
[2023-10-22 07:40] LABS: C-REACTIVE PROTEIN 4.08 mg/dL (0.00-0.50); CREATININE, serum 0.92 mg/dL (0.72-1.25); MAGNESIUM 1.9 mg/dL (1.6-2.6)
[2023-10-22 07:55] LABS: INR 1.6 (0.8-3.0); PROTHROMBIN TIME 16.8 SECONDS (9.7-12.8)
[2023-10-22 08:02] LABS: BAND 5 % (0-10); LYMPHOCYTE 13 % (20.0-51.0); NEUTROPHILS 76 % (42.0-75.2); NUCLEATED RED BLOOD CELL 1 (0-6); PLATELET ESTIMATE NORMAL (NORMAL)
[2023-10-22 09:00] VITALS: BP_SYST 170
[2023-10-22] MEDS ORDERED: DECADRON6 MG PO (10:11)
[2023-10-22] MEDS ORDERED: MONODOX100 PO (10:12)
[2023-10-22] MEDS ORDERED: MAG-OX 400400 MG/TAB PO (10:14)
--- NOTE | 2023-10-22 10:23 | NUR ---
Patient alert and oriented x4. Shift assessment complete. Denies pain or discomfort. Activity at baseline. Lung sounds clear to upper lobes and fine crackles noted to bases bilaterally. Patient states he is coughing sputum, encouraged to spit sputum out. Currently sitting up in recliner with call light in reach. All needs met at this time.
[2023-10-22 12:38] VITALS: BP 128/73; PULSE 75; TEMP 97.6
--- NOTE | 2023-10-22 12:47 | NUR ---
Discharge instructions discussed with patient including follow-up appointments/OT and PT, new medications, and education packets. Patient verbalized understanding. IV discontinued to left wrist with no complications. No telemetry present. Patient escorted out by staff to patient entrance via wheelchair.
--- NOTE | 2023-10-22 14:07 | NUR ---
Teachers' Aide spoke with Hospitalist who advised patient is ready for discharge today and would prefer outpatient PT over Home Health services. SW followed up with patient who would like to be set up with [facility]. MARTÍN contacted [facility] and confirmed they received referral and that they will contact patient to schedule. Discharge Plan: Home with outpatient PT
== END 2023-10-22 12:30 | disposition home or self-care (01) | DRG 177 ==
LOC: COL.ER 14:11 → MEDICAL 15:19
PROVIDERS: Personal Emergency Response Attendant; ADMIT Internal Medicine
DX: U07.1 COVID-19 (principal); J12.82 Pneumonia due to coronavirus disease 2019; I48.91 Unspecified atrial fibrillation; Z79.01 Long term (current) use of anticoagulants; Z95.2 Presence of prosthetic heart valve; E11.9 Type 2 diabetes mellitus without complications; Z79.84 Long term (current) use of oral hypoglycemic drugs; G25.81 Restless legs syndrome; I10 Essential (primary) hypertension; E83.42 Hypomagnesemia; E78.5 Hyperlipidemia, unspecified; E11.40 Type 2 diabetes mellitus with diabetic neuropathy, unspecified; K21.9 Gastro-esophageal reflux disease without esophagitis
CPT/HCPCS: J1100; J1650; J1815; J1956; J3475; J7030; J7120; J8540

== ENCOUNTER 2024-06-21 02:44 | Inpatient (IN) | payer MEDICARE ==
[~2024-06-21] VITALS: Ht 180.3 cm; Wt 102.8 kg
[~2024-06-21 02:44] MED LIST changes: +CEFTIN500 MG PO; +DECADRON6 MG PO; +FLONASE NASAL S16 GM NS; +MAG-OX 400400 MG/TAB PO; +MONODOX100 PO; +RT ADVAIR 128 DISKUS IH; -XALATAN EYE DROPS OD; +XALATAN EYE DROPS OU; +ZEBETA 5MG5 MG PO; -ZEBETA10 MG PO
[2024-06-21] MEDS ORDERED: Ondansetron 4 MG/2 ML VIAL IV ONE (03:00)
[2024-06-21] MEDS ORDERED: LR 1,000 ML IV ONE ×2 (03:00→05:15)
[2024-06-21 03:03] LABS: BASO % 0.3 % (0.0-2.0); EOS # 0.1 K/mm3 (0.0-0.7); EOS % 0.4 % (0.0-4.0); GRAN # 14.2 K/mm3 (1.4-6.5); GRAN % 89.7 % (42.2-75.2); HEMATOCRIT 41.6 % (42.0-52.0); HEMOGLOBIN 13.8 g/dl (13.5-18.0); LYMPH # 0.4 K/mm3 (1.2-3.4); LYMPH % 2.4 % (20.0-51.0); MEAN CELL VOLUME 79 fl (80.0-100.0); MEAN CORPUSCULAR HEMOGLOBIN 26 pg (27-31); MEAN CORPUSCULAR HGB CONC 33 g/dl (33.0-37.0); MONO # 1.1 K/mm3 (0.1-0.6); MONO % 6.8 % (1.7-9.3); PLATELET COUNT 144 K/mm3 (130-400); RED BLOOD COUNT 5.28 M/mm3 (4.20-5.60); REDCELL DISTRIBUTION WIDTH-CV 15.1 % (11.5-14.5)
[2024-06-21 03:30] LABS: ALBUMIN 3.6 g/dL (3.4-4.8); CALCIUM 9.6 mg/dL (8.4-10.2); CREATININE, serum 1.06 mg/dL (0.72-1.25); POTASSIUM 3.8 mEq/L (3.5-4.5); TOTAL PROTEIN 7.5 g/dl (6.2-8.1)
[2024-06-21 03:42] LABS: TROPONIN-I 0.054 ng/mL (0.00-0.033)
[2024-06-21] MEDS ORDERED: Magnesium Sulfate 4% 50 ML IV ONE (03:45)
[2024-06-21 04:40] LABS: COLLECTION METHOD CLEAN CATCH
[2024-06-21 04:48] LABS: PH 6.5 (5.0-8.5); URINE APPEARANCE CLEAR (CLEAR/HAZY); URINE BLOOD TRACE (NEGATIVE); URINE COLOR YELLOW (YELLOW); URINE GLUCOSE NEGATIVE (NEGATIVE); URINE KETONE NEGATIVE (NEGATIVE); URINE NITRATE NEGATIVE (NEGATIVE); URINE PROTEIN(semi-quant) NEGATIVE (NEGATIVE)
[2024-06-21] MEDS ORDERED: Iohexol 300 - 100 ML VIAL IV ONE (05:46)
[2024-06-21] MEDS ORDERED: Docusate Sodium 100 MG CAP PO PRN (08:45)
[2024-06-21] MEDS ORDERED: Polyethylene Glycol 3350 17 GM PDS PO PRN (08:45)
[2024-06-21] MEDS ORDERED: NS 1,000 ML IV SCH (08:45)
[2024-06-21] MEDS ORDERED: Ondansetron 4 MG/2 ML VIAL IV PRN (08:45)
[2024-06-21] MEDS ORDERED: Acetaminophen 325 MG TAB PO PRN (08:45)
[2024-06-21] MEDS ORDERED: Pregabalin 150 MG CAP PO SCH (09:00)
[2024-06-21] MEDS ORDERED: Famotidine 20 MG TAB PO SCH (09:00)
[2024-06-21] MEDS ORDERED: Losartan 25 MG TAB PO SCH (09:00)
[2024-06-21] MEDS ORDERED: Glucagon 1 MG VIAL IM PRN (09:00)
[2024-06-21] MEDS ORDERED: Dextrose (Glucose) 15 GM (4 x 3.75 GM) Chewable TABLET PACK PO PRN (09:00)
[2024-06-21] MEDS ORDERED: Fluticasone Nasal 50 MCG/Spray 16 GM BOTTLE NS SCH (09:00)
[2024-06-21] MEDS ORDERED: Magnesium Oxide 400 MG TAB PO SCH (09:00)
[2024-06-21] MEDS ORDERED: Albuterol/Ipratropium 3 MG-0.5 MG/3 ML Neb Soln IH PRN (09:00)
[2024-06-21] MEDS ORDERED: Bisoprolol 5 MG TAB PO SCH (09:00)
[2024-06-21] MEDS ORDERED: Dextrose 50% Water 25 GM/50 ML SYRINGE IV PRN (09:00)
[2024-06-21] MEDS ORDERED: Warfarin 5 MG TAB PO SCH (09:00)
[2024-06-21 09:19] VITALS: BP 118/72; PULSE 78; TEMP 98
--- NOTE | 2024-06-21 10:04 | NUR ---
PATIENT ARRIVED TO MEDICAL FLOOR AT APPROX 0915. ALERT AND ORIENTED. ADMISSION ASSESSMENT AND INTAKE COMPLETE. BUTTOCKS IS REDDENED, BUT SKIN IS INTACT. MICHELLE DD WITH DARK TAMRA URINE NOTED IN BAG. DIABETIC ULCERS TO RIGHT 2ND AND 3RD ANT METATARSAL. COVERED WITH BANDAIDS. CDI. PER PATIENT, HE "CANNOT FEEL MY FEET SO I RUN INTO THINGS." TELEMETRY ON. PATIENT EDUCATED TO CALL WHEN HE NEEDS TO GET UP OUT OF BED. PATIENT AGREEABLE. DENIES PAIN OR DISCOMFORT AT THIS TIME. VSS. PATIENT STABLE ON 2L OF O2 VIA NC. CALL LIGHT WITHIN REACH.
[2024-06-21 11:08] VITALS: BP 135/78; PULSE 70; TEMP 98.2
[2024-06-21] MEDS ORDERED: Insulin Lispro (HumaLOG) SQ SCH (12:00)
[2024-06-21 12:02] VITALS: BP 134/86; PULSE 80; TEMP 97.6
[2024-06-21 16:22] LABS: INR 3.8 (0.8-3.0)
[2024-06-21 16:26] VITALS: BP 136/82; PULSE 73; TEMP 97.4
--- NOTE | 2024-06-21 17:07 | NUR ---
Patient sitting up in the bed, A&Ox4. VSS 2L NC O2. No reported pain or discomfort. Bay intact. Call light within reach
[2024-06-21] MEDS ORDERED: Formoterol Neb Soln 20 MCG/2 ML UD IH SCH (19:00)
[2024-06-21] MEDS ORDERED: Budesonide Neb Susp 0.5 MG/2 ML AMP IH SCH (19:00)
[2024-06-21 20:30] VITALS: BP_SYST 143
--- NOTE | 2024-06-21 20:30 | NUR ---
UPON SHIFT ASSESSMENT, BILL WAS AWKE IN BED AND A&O X4 WITH VISITING BEDSIDE. O2 SAT WAS 100% ON 2L NC. O2 TITRATED DOWN TO 1L. UPPER LUNGS AUSCULTATED EXP&INSP WHEEZING FOLLOWING BREATHING TREATMENT. NO INCREASE WOB NOTED. VS ARE WNL AND TELE IS NS. RECENT BG NOT REQURING INSULIN. MICHELLE PATENT AND DRAINING DARK TAMRA CLEAR URINE. IVF RUNNING IN RT WRIST. PATIENT DENIES PAIN OR SOA AT THIS TIME. CALL LIGHT WITHIN REACH AND BED ALARM ON.
[2024-06-21] MEDS ORDERED: Latanoprost 0.005% Ophth Soln 2.5 ML BOTTLE OP SCH (21:00)
[2024-06-21] MEDS ORDERED: Montelukast 10 MG TAB PO SCH (21:00)
[2024-06-21] MEDS ORDERED: rOPINIRole 1 MG TAB PO SCH (21:00)
[2024-06-21] MEDS ORDERED: Atorvastatin 40 MG TAB PO SCH (21:00)
--- NOTE | 2024-06-21 21:00 | NUR ---
WHILE PERFORMING CATHETER CARE, SCANT AMOUNT OF DRIED BLOOD NOTED ON TUBING PROXIMAL TO MEATUS. NO ACTIVE BLEEDING NOTED. PERICARE DID NOT REMOVE ALL DRIED BLOOD.
[2024-06-21 21:27] VITALS: BP 143/69; PULSE 76; TEMP 98.2
[2024-06-22] VITALS (13 sets, daily range): BP systolic 109–164; BP diastolic 58–82; PULSE 66–89; TEMP 97.4–98.5
--- NOTE | 2024-06-22 01:47 | NUR ---
CALL PLACED TO RT. PATIENT CPAP MAKING UNUSUAL NOISE, CANNOT TROUBLE SHOOT. RT BEDSIDE ASSISSTING PATIENT WITH CPAP.
--- NOTE | 2024-06-22 04:34 | NUR ---
PATIENT RESTING SUPINE WITHE CPAP IN PLACE. VS ARE WNL.
[2024-06-22 06:12] LABS: BASO % 0.4 % (0.0-2.0); EOS # 0.4 K/mm3 (0.0-0.7); EOS % 3.8 % (0.0-4.0); GRAN % 78.6 % (42.2-75.2); LYMPH # 0.9 K/mm3 (1.2-3.4); LYMPH % 9.2 % (20.0-51.0); MEAN CELL VOLUME 81 fl (80.0-100.0); MEAN CORPUSCULAR HGB CONC 32 g/dl (33.0-37.0); MEAN PLATELET VOLUME 11.4 fl (7.4-10.4); MONO # 0.8 K/mm3 (0.1-0.6); MONO % 7.7 % (1.7-9.3); PLATELET COUNT 118 K/mm3 (130-400); RED BLOOD COUNT 4.56 M/mm3 (4.20-5.60); REDCELL DISTRIBUTION WIDTH-CV 15.3 % (11.5-14.5)
[2024-06-22 06:26] LABS: HEMATOCRIT 36.9 % (42.0-52.0); HEMOGLOBIN 11.7 g/dl (13.5-18.0); INR 3.6 (0.8-3.0); MEAN CORPUSCULAR HEMOGLOBIN 26 pg (27-31)
[2024-06-22 06:27] LABS: CALCIUM 9.1 mg/dL (8.4-10.2); CREATININE, serum 1.07 mg/dL (0.72-1.25); POTASSIUM 4.1 mEq/L (3.5-4.5)
--- NOTE | 2024-06-22 07:07 | NUR ---
[facility]TA CALLED IN BY LAB [facility] 11.7. PATIENT ON IVF. NON CRITICAL LAB HOSPITALIST UNAVAILABLE TO NOTIFY PER PROTOCOL (SHIFT CHANGE IN AFFECT).
--- NOTE | 2024-06-22 07:22 | NUR ---
PATIENT 94% ON RA. WORE HOSPITAL CPAP ON RA. HASNCPAP AT HOME. PRODUCTIVE YELLOW SPUTUM COUGH. MARGARITA WEL
--- NOTE | 2024-06-22 08:25 | NUR ---
pt is a&ox4 resting in bed. vss and tele in place. pt reports pain in bilateral shoulders that he has been experiencing for a few weeks, tylenol given. meds given and assessment complete. florez to dd with dark urine output. pt is on room air. NS infusing into right wrist IV at 100ml/hr. assisted pt to bathroom x1 assist with walker, pt incontinenet of stool. pt denies needs at this time. call light in reach.
[2024-06-22] MEDS ORDERED: Warfarin 5 MG TAB PO ONE (08:45)
--- NOTE | 2024-06-22 08:58 | NUR ---
airport utility worker met with pt to discuss discharge planning. He reports to live alone in [place]. He sees Dr. Rider for PCP needs and [facility] with no difficulties. He confirmed to have Medicare [employer] insurance. Pt reports to be independent with ADLS and uses a FWW and CPAP for DME. He confirmed the DPOA-HC on file listing sister, Trish [phone] and brother, Herbert [phone]. Pt reports contact, Bonifacio is his friend. MARTÍN discussed therapy's reccomendation for Home Health. SW provided Medicare.gov list of HH. He reports to have had [facility] and would like them again. MARTÍN faxed [facility] referral. Discharge Plan: home with HH
[2024-06-22] MEDS ORDERED: FLOMAX 0.40.4 MG/CAP PO (10:16)
--- NOTE | 2024-06-22 12:40 | NUR ---
awake resting in bed, bedside shift report received binh Ogden RN
--- NOTE | 2024-06-22 13:05 | NUR ---
resting in bed with eyes closed, full assessment completed, see intervention for further info
--- NOTE | 2024-06-22 16:08 | NUR ---
urine is now cler light yellow in tubing, states he is now feeling the best he has felt
--- NOTE | 2024-06-22 17:20 | NUR ---
is now ordering supper
--- NOTE | 2024-06-22 19:23 | NUR ---
bedside shift report given to ERNST Smith
--- NOTE | 2024-06-22 20:53 | NUR ---
PATIENT RESTING IN BED WATCHING TV. DENIES ANY PAIN AT THIS TIME. CALL LIGHT WITHIN REACH. CPAP AT BEDSIDE. BED IS LOCKED AND IN LOW POSITION.
[2024-06-23 00:20] VITALS: BP 152/85; PULSE 74; TEMP 98.2
[2024-06-23 00:29] VITALS: BP_SYST 152
--- NOTE | 2024-06-23 02:27 | NUR ---
0227 Pt had a 6 beat run of VTach. ERNST Smith notified.
--- NOTE | 2024-06-23 02:39 | NUR ---
PHYSICIAN OFFICE REP CALLED TO INFORM OF 6 BEAT RUN OF V-TACH. PATIENT IS NOW BACK IN SINUS RHYTHM AND IS RESTING IN BED WITH EYES CLOSED. RESPIRATIONS EVEN
[2024-06-23 03:59] VITALS: BP 136/75; PULSE 66; TEMP 98.3
[2024-06-23 04:11] VITALS: BP_SYST 136
--- NOTE | 2024-06-23 04:39 | NUR ---
CONCRETE ROD BUSTER CALLED TO INFORM PATIENT WAS OFF TELE, THEN SHORTLY LATER WHEN HE CAME BACK UP ON TELE, HE WAS OFF AGAIN AND SCREEN READ SIGNAL LOSS. ALL PATCHES REPLACED, PATIENT IN NORMAL SINUS RHYTHM.
[2024-06-23 06:58] LABS: INR 2.6 (0.8-3.0); PROTHROMBIN TIME 27.5 SECONDS (9.7-12.8)
[2024-06-23 07:00] LABS: BASO % 0.5 % (0.0-2.0); EOS # 0.4 K/mm3 (0.0-0.7); EOS % 4.8 % (0.0-4.0); GRAN # 6.2 K/mm3 (1.4-6.5); GRAN % 71.7 % (42.2-75.2); HEMATOCRIT 38.3 % (42.0-52.0); HEMOGLOBIN 12.6 g/dl (13.5-18.0); LYMPH # 1.2 K/mm3 (1.2-3.4); LYMPH % 14.1 % (20.0-51.0); MEAN CELL VOLUME 79 fl (80.0-100.0); MEAN CORPUSCULAR HEMOGLOBIN 26 pg (27-31); MEAN CORPUSCULAR HGB CONC 33 g/dl (33.0-37.0); MONO # 0.7 K/mm3 (0.1-0.6); MONO % 8.6 % (1.7-9.3); PLATELET COUNT 125 K/mm3 (130-400); RED BLOOD COUNT 4.87 M/mm3 (4.20-5.60)
[2024-06-23 07:20] VITALS: BP 145/77; PULSE 71; TEMP 98
[2024-06-23 07:21] LABS: CALCIUM 9.5 mg/dL (8.4-10.2); CREATININE, serum 1.15 mg/dL (0.72-1.25); POTASSIUM 4.1 mEq/L (3.5-4.5)
[2024-06-23 08:21] VITALS: BP_SYST 145
[2024-06-23] MEDS ORDERED: AMOXICILLIN 8751 TAB PO (08:52)
[2024-06-23] MEDS ORDERED: Bisoprolol 5 MG TAB PO SCH (09:00)
--- NOTE | 2024-06-23 09:07 | NUR ---
production staff worker attended clinical rounding and was informed pt can discharge. SW faxed discharge orders to [facility]. Discharge Plan: home with HH
--- NOTE | 2024-06-23 10:18 | NUR ---
THIS RN PROVIDED DISCHARGE EDUCATION AND INSTRUCTIONS. ALL QUESTIONS ANSWERED. IV TO RIGHT WRIST DISCONTINUED. CATHETER INTACT. MINIMAL DRAINAGE NOTED.
--- NOTE | 2024-06-23 10:51 | NUR ---
PATIENT ESCORTED OFF UNIT AT APPROX 1045 VIA WHEELCHAIR BY PCT. ALL BELONGINGS WITH PATIENT.
[2024-06-28] MEDS ORDERED: Warfarin 5 MG TAB PO SCH (09:00)
== END 2024-06-23 10:45 | disposition other institution (70) | DRG 871 ==
LOC: COL.ER 02:44 → MEDICAL 08:42
PROVIDERS: Emergency Medicine; ADMIT Internal Medicine
DX: A41.9 Sepsis, unspecified organism (principal); I21.4 Non-ST elevation (NSTEMI) myocardial infarction; J18.9 Pneumonia, unspecified organism; J96.11 Chronic respiratory failure with hypoxia; I50.30 Unspecified diastolic (congestive) heart failure; I13.0 Hypertensive heart and chronic kidney disease with heart failure and stage 1 through stage 4 chronic kidney disease, or unspecified chronic kidney disease; G47.33 Obstructive sleep apnea (adult) (pediatric); N18.30 Chronic kidney disease, stage 3 unspecified; E11.40 Type 2 diabetes mellitus with diabetic neuropathy, unspecified; G25.81 Restless legs syndrome; J45.909 Unspecified asthma, uncomplicated; I48.91 Unspecified atrial fibrillation; E78.5 Hyperlipidemia, unspecified; K21.9 Gastro-esophageal reflux disease without esophagitis; G31.84 Mild cognitive impairment of uncertain or unknown etiology; G35 Multiple sclerosis; I25.10 Atherosclerotic heart disease of native coronary artery without angina pectoris; D64.9 Anemia, unspecified; D69.6 Thrombocytopenia, unspecified; Z87.440 Personal history of urinary (tract) infections; Z79.891 Long term (current) use of opiate analgesic; Z86.16 Personal history of COVID-19; Z95.2 Presence of prosthetic heart valve; Z79.01 Long term (current) use of anticoagulants; Z79.899 Other long term (current) drug therapy; Z79.51 Long term (current) use of inhaled steroids; Z99.89 Dependence on other enabling machines and devices
CPT/HCPCS: J2405; J2543; J3475; J7030; J7120; Q9967